=== PATIENT | female | born 1930 | race Caucasian/White ===

== ENCOUNTER 2016-07-19 08:09 | Inpatient (IN) | payer MEDICARE, BC ==
--- NOTE | 2016-07-19 09:42 | ER Document Report ---
ED Fall <CATIE FOWLER - Last Filed: 07/19/16 11:14> - General Time seen by provider: 09:48 Mode of Arrival: Ambulatory Information source: Patient - HPI Occurred: This morning - see HPI notes Where: Indoors Context: Lost balance Associated symptoms: denies: Lost consciousness Location of injury/pain: Head, Hip <JONATHAN GEORGE - Last Filed: 07/19/16 11:20> - General Chief Complaint: Fall Stated Complaint: FALL/ LEG PAIN Notes: Patient is an 86-year-old female presented from her spread of complaints of leg pain due to fall. Patient states that she got up this morning to answer the phone since her daughter was calling her. Patient states that she lost her balance and fell. Patient states she hit the front left side of her head and landed on her left hip. Patient states that she is sharp pain with movement and palpation of the left hip. Patient states that feels sore and that she cannot lift her leg. Patient denies any loss of consciousness to her knowledge. Patient is not on any blood thinners. Patient states she is on 3 blood pressure medications. Patient did have surgery on her left eye last week. Patient has no known allergies. Patient's PCP is Dr. Rios; patient had her first appointment with him this morning but missed it due to her fall. ( JONATHAN GEORGE) - Related data Allergies/Adverse Reactions: No Known Allergies Allergy (Verified 09/30/12 20:34) Past Medical History - General Information source: Patient - Social History Smoking Status: Unknown if Ever Smoked Family History: None - Past Medical History Cardiac Medical History: Reports: Hx Hypertension Musculoskeltal Medical History: Reports Hx Arthritis Past Surgical History: Reports: Hx Appendectomy, Hx Breast Surgery - right breast removal, Hx Cholecystectomy, Other - eye surgery - Immunizations Hx Diphtheria, Pertussis, Tetanus Vaccination: Yes <JONATHAN GEORGE - Last Filed: 07/19/16 11:20> Review of Systems - Review of Systems Constitutional: No symptoms reported EENT: No symptoms reported Cardiovascular: No symptoms reported Respiratory: No symptoms reported Gastrointestinal: No symptoms reported Genitourinary: No symptoms reported Female Genitourinary: No symptoms reported Musculoskeletal: See HPI, Joint pain Skin: No symptoms reported Hematologic/Lymphatic: No symptoms reported Neurological/Psychological: No symptoms reported -: Yes All other systems reviewed and negative <JONATHAN GEORGE - Last Filed: 07/19/16 11:20> Physical Exam - Vital signs Interpretation: Hypertensive - General General appearance: Appears well, Alert In distress: Mild - HEENT Head: Normocephalic, Other - ecchymosis over left temporal region and forehead, underlying hematoma Eyes: Normal Pupils: PERRL - 4 mm Mucous membranes: Moist - Respiratory Respiratory status: No respiratory distress Chest status: Nontender Breath sounds: Normal Chest palpation: Normal - Cardiovascular Rhythm: Regular Heart sounds: Normal auscultation Murmur: No - Abdominal Inspection: Normal Distension: No distension Bowel sounds: Normal Tenderness: Nontender Organomegaly: No organomegaly - Back Back: Normal, Nontender - Extremities General upper extremity: Normal inspection, Normal ROM, Normal strength Hip: Other - Tender over her left hip, pain with interior and exterior rotation , no pain or discomfort with heel percussion, good patellar pulse - Neurological Neuro grossly intact: Yes Cognition: Normal Orientation: AAOx4 Shantal Coma Scale Eye Opening: Spontaneous Shantal Coma Scale Verbal: Oriented Shantal Coma Scale Motor: Obeys Commands [place] Coma Scale Total: 15 Speech: Normal - Psychological Associated symptoms: Normal affect, Normal mood - Skin Skin Temperature: Warm Skin Moisture: Dry <JONATHAN GEORGE - Last Filed: 07/19/16 11:20> - Vital signs Vitals: Temp BP Pulse Ox 97.8 F 193/100 H 100 07/19/16 08:31 07/19/16 08:31 07/19/16 08:31 (CATIE FOWLER) Course - Laboratory Result Diagrams: 07/19/16 10:35 07/19/16 10:35 <CATIE FOWLER - Last Filed: 07/19/16 11:14> - Laboratory Result Diagrams: 07/19/16 10:35 07/19/16 10:35 - Consults Time consulted: 10:45 Consulted provider: will see as inpatient <JUANJONATHAN LARA - Last Filed: 07/19/16 11:20> - Re-evaluation Re-evalutation: 07/19/16 10:06 Patient presents indicating that she got up to answer the phone this morning and she was a little bit wobbly and fell when she reached for the door. She says that she hit her head against the door and then somehow fell on her left hip. Says she is unable to get up because of the left hip pain. She indicates she did not lose consciousness. She has a mild headache from where she hit it on the doorknob. The patient indicates that she is able to move the ankle and foot without any difficulties. She does not knee secondary to pain in her hip. Denies any prior hip injuries. The patient is alert and oriented and in no acute distress. Vital signs stable. Patient is tender in the left hip with both internal and external rotation painful range of motion and inability to actively range the hip. We'll get plain films of the left hip and pelvis. We will get a head CT due to the hematoma on the left forehead. We'll get preop labs and EKG based on clinical evaluation concerning for hip fracture. 07/19/16 10:50 I have reviewed the imaging and the patient has a left subcapital femoral neck fracture. I have spoken with Dr. Izquierdo who is on-call for orthopedics who will consult on the patient. I spoke to Dr. Saavedra for hospitalist admission and she indicates that the nurse practitioner Iglesia will take this. I consulted Dr. Parekh and her phone is not picking up and we will retry. 07/19/16 10:53 07/19/16 11:[address] Saavedra who accepted the patient for admission. (CATIE FOWLER) - Vital Signs Vital signs: Temp Pulse Resp BP Pulse Ox 97.8 F 24 H 193/86 H 96 07/19/16 08:31 07/19/16 10:45 07/19/16 10:45 07/19/16 10:45 (CATIE FOWLER) (JONATHAN GEORGE) - Laboratory Laboratory results interpreted by me: 07/19/16 07/19/16 10:35 10:35 Seg Neutrophils % 85.6 H Lymphocytes % 9.0 L Potassium 3.3 L - EKG Interpretation by Me Additional EKG results interpreted by me: 07/19/16 11:14 Heart rate 63, sinus rhythm, left ventricular hypertrophy, normal axis, normal intervals, no ST elevations, as interpreted by me. No old for comparison. ( CATIE FOWLER) - Consults Reason for consultation: 07/19/16 10:[address] Saavedra, the patient will be admitted to Dr. Parekh. (JONATHAN GEORGE) Discharge - Discharge Admitting Provider: Hospitalist - JULIO CESAR Parekh to admit as per Dr. Saavedra Unit Admitted: Surgical Floor <CATIE FOWLER - Last Filed: 07/19/16 11:14> <JONATHAN GEORGE - Last Filed: 07/19/16 11:20> - Discharge Clinical Impression: Subcapital fracture of left femur Hematoma of scalp Qualifiers: Encounter type: initial encounter Qualified Code(s): S00.03XA - Contusion of scalp, initial encounter Condition: Stable Disposition: ADMITTED INPATIENT Scribe Attestation: 07/19/16 10:50 I personally performed the services described in the documentation, reviewed and edited the documentation which was dictated to the scribe in my presence, and it accurately records my words and actions. (CATIE FOWLER) Scribe Documentation - Scribe Written by Scribe:: Jonathan George 07/19/16 10:36 acting as scribe for :: Can <JONATHAN GEORGE - Last Filed: 07/19/16 11:20>
[2016-07-19] MEDS ORDERED: MORPHINE SULFATE 10 MG/ML INJ IV ONE (10:17)
[2016-07-19 10:57] LABS: ABSOLUTE LYMPHOCYTES (AUTO) 0.7 10^3/uL (0.5-4.7); ABSOLUTE MONOCYTES (AUTO) 0.4 10^3/uL (0.1-1.4); BASOPHILS % (AUTO) 0.2 % (0-2); EOSINOPHILS % (AUTO) 0.3 % (0-6); HEMATOCRIT 37.4 % (36.0-47.0); HEMOGLOBIN 12.4 g/dL (12.0-15.5); HGB HCT DIFFERENCE -0.2; MEAN CORPUSCULAR HEMOGLOBIN 31.4 pg (27.0-33.4); MEAN CORPUSCULAR VOLUME 95 fl (80-97); MONOCYTES % (AUTO) 4.9 % (3-13); RED BLOOD COUNT 3.94 10^6/uL (3.72-5.28); RED CELL DISTRIBUTION WIDTH 13.4 % (11.5-14.0); SEGMENTED NEUTROPHILS % (AUTO) 85.6 % (42-78); WHITE BLOOD COUNT 8.2 10^3/uL (4.0-10.5)
[2016-07-19 11:05] LABS: PROTHROMBIN TIME 12.6 SEC (11.4-15.4)
[2016-07-19 11:14] LABS: ANION GAP 12 (5-19); BLOOD UREA NITROGEN 15 mg/dL (7-20); CALCIUM 9.6 mg/dL (8.4-10.2); CARBON DIOXIDE 25 mmol/L (22-30); CHLORIDE 105 mmol/L (98-107); CREATININE RESULT 0.77 mg/dL (0.52-1.25); GLUCOSE 102 mg/dL (75-110); POTASSIUM 3.3 mmol/L (3.6-5.0); SODIUM 141.6 mmol/L (137-145)
[2016-07-19] MEDS ORDERED: HYDRALAZINE HCL INJ/PF 20 MG/1 ML SDV IV ONE (11:44)
[2016-07-19] MEDS ORDERED: NORMAL SALINE 1000 ML 1,000 ML IV PRN (11:45)
[2016-07-19] MEDS ORDERED: ONDANSETRON HCL INJ/PF 4 MG/2 ML SDV IV PRN (11:45)
[2016-07-19] MEDS ORDERED: ONDANSETRON HCL INJ/PF 4 MG/2 ML SDV ONE (11:58)
[2016-07-19] MEDS ORDERED: HYDRALAZINE HCL INJ/PF 20 MG/1 ML SDV ONE (11:58)
--- NOTE | 2016-07-19 12:49 | EKG REPORT ---
SEVERITY:- ABNORMAL ECG - SINUS RHYTHM PROBABLE LVH WITH SECONDARY REPOL ABNRM BORDERLINE PROLONGED QT INTERVAL : Confirmed by: Lukasz Calderon 19-Jul-2016 12:48:30
--- NOTE | 2016-07-19 15:59 | PDOC H&P ---
History of Present Illness Admission Date/PCP: 07/19/16 11:42 KYLAH GEE MD Patient complains of: pain hip. S/P fall History of Present Illness: TAY POLK is a 86 year old female female presented with complaints of leg pain due to fall. Patient states that she got up this morning to answer the phone since her daughter was calling her. Patient states that she lost her balance and fell. Patient states she hit the front left side of her head and landed on her left hip. Patient states that she is sharp pain with movement and palpation of the left hip. Patient states that feels sore and that she cannot lift her leg. Patient denies any loss of consciousness to her knowledge. Patient is not on any blood thinners. Patient states she is on 3 blood pressure medications. Patient did have surgery on her left eye last week. Patient has no known allergies. Patient's PCP is Dr. Gee; patient had her first appointment with him this morning but missed it due to her fall. (JONATHAN GEORGE) Upon evaluation in the ED patient was diagnosed of fracture of the right hip She also had sustained head injury with ecchymosis of the left temporal area A CT of the head was negative for bleed Patient was subsequently admitted under hospitalist service with an orthopedic consult to an IMCU unit Past Medical History Cardiac Medical History: Reports: Hypertension EENT Medical History: Reports: Eyes - Glaucoma; patient is legally blind Musculoskeltal Medical History: Reports: Arthritis Past Surgical History Past Surgical History: Reports: Appendectomy, Cholecystectomy, Other - Eye surgery Social History Information Source: Relative - daughter Lives with: Family Smoking Status: Never Smoker Frequency of Alcohol Use: None Drugs: None - Advance Directive Resuscitation Status: Do Not Resuscitate Surrogate healthcare decision maker:: daughter Samira Family History Family History: None Parental Family History Reviewed: Yes Children Family History Reviewed: Yes Sibling(s) Family History Reviewed.: Yes Medication/Allergy Home Medications: Acyclovir [Acyclovir 400 mg Tablet] 400 mg PO TID 09/30/12 Brinzolamide [Azopt Eye Drops] 5 ml OP 09/30/12 Enalapril Maleate [Vasotec 20 mg Tablet] 20 mg PO 09/30/12 Furosemide [Lasix 40 mg Tablet] 40 mg PO 09/30/12 Metoprolol Tartrate [Lopressor 25 Mg Tablet] 25 mg PO 09/30/12 Prednisolone Acetate 5 ml OP 09/30/12 Tramadol HCl 50 mg PO 09/30/12 Travoprost [Travatan Z] 5 ml OP 09/30/12 Verapamil HCl [Verelan] 360 mg PO 09/30/12 Allergies/Adverse Reactions: No Known Allergies Allergy (Verified 09/30/12 20:34) Review of Systems ROS unobtainable: Other - Patient is not answering all the questions appropriately She appears in great deal of pain Physical Exam Vital Signs: Temp Pulse Resp BP Pulse Ox 99.1 F 14 180/63 H 99 07/19/16 12:26 07/19/16 13:00 07/19/16 13:01 07/19/16 13:01 General appearance: PRESENT: mild distress, thin Head exam: PRESENT: other - Large ecchymosis left frontal frontal area Eye exam: PRESENT: conjunctiva pink, EOMI, PERRLA. ABSENT: scleral icterus Mouth exam: PRESENT: moist, tongue midline Respiratory exam: PRESENT: clear to auscultation erika. ABSENT: rales, rhonchi, wheezes Cardiovascular exam: PRESENT: RRR. ABSENT: diastolic murmur, rubs, systolic murmur Pulses: PRESENT: normal dorsalis pedis pul GI/Abdominal exam: PRESENT: normal bowel sounds, soft. ABSENT: distended, guarding, mass, organolmegaly, rebound, tenderness Rectal exam: PRESENT: deferred Extremities exam: PRESENT: other - Pain on passive mobilization of the left hip. ABSENT: calf tenderness, clubbing, pedal edema Neurological exam: PRESENT: awake, CN II-XII grossly intact Skin exam: PRESENT: other - ecchymosis left frontal area Results Laboratory Results: 07/19/16 14:42 Troponin I < 0.012 07/19/16 07/19/16 10:35 10:35 Seg Neutrophils % 85.6 H Lymphocytes % 9.0 L Potassium 3.3 L Labs- Entire Visit 07/19/16 07/19/16 07/19/16 10:35 10:35 10:35 WBC 8.2 RBC 3.94 Hgb 12.4 Hct 37.4 MCV 95 MCH 31.4 MCHC 33.0 RDW 13.4 Plt Count 258 Seg Neutrophils % 85.6 H Lymphocytes % 9.0 L Monocytes % 4.9 Eosinophils % 0.3 Basophils % 0.2 Absolute Neutrophils 7.0 Absolute Lymphocytes 0.7 Absolute Monocytes 0.4 Absolute Eosinophils 0.0 Absolute Basophils 0.0 PT 12.6 INR 0.92 Sodium 141.6 Potassium 3.3 L Chloride 105 Carbon Dioxide 25 Anion Gap 12 BUN 15 Creatinine 0.77 Est GFR ( Amer) > 60 Est GFR (Non-Af Amer) > 60 Glucose 102 Calcium 9.6 Troponin I 07/19/16 14:42 WBC RBC Hgb Hct MCV MCH MCHC RDW Plt Count Seg Neutrophils % Lymphocytes % Monocytes % Eosinophils % Basophils % Absolute Neutrophils Absolute Lymphocytes Absolute Monocytes Absolute Eosinophils Absolute Basophils PT INR Sodium Potassium Chloride Carbon Dioxide Anion Gap BUN Creatinine Est GFR ( Amer) Est GFR (Non-Af Amer) Glucose Calcium Troponin I < 0.012 Impressions: Hip X-Ray 07/19/16 09:59 IMPRESSION: Acute subcapital left femoral neck fracture with varus angulation and mild foreshortening Head CT 07/19/16 10:00 IMPRESSION: Left frontal scalp hematoma without underlying skull fracture or acute intracranial changes Chest X-Ray 07/19/16 10:01 IMPRESSION: NO ACUTE RADIOGRAPHIC FINDING IN THE CHEST. Assessment & Plan - Diagnosis (1) Hypertension Qualifiers: Hypertension type: essential hypertension Qualified Code(s): I10 - Essential (primary) hypertension Is this a current diagnosis for this admission?: YesPlan: We'll treat with intermittent doses of hydralazine IV (2) Bradycardia Is this a current diagnosis for this admission?: YesPlan: Likely secondary to vagal stimulation Patient was extremely nauseous when bradycardic in the ED We will treat with Zofran IV and reevaluate The initial EKG was normal (4) Hematoma of scalp Qualifiers: Encounter type: initial encounter Qualified Code(s): S00.03XA - Contusion of scalp, initial encounter Is this a current diagnosis for this admission?: YesPlan: Secondary to fall and head injury The CAT scan of the head was negative We will order MEND exam every 4 hours Ice packs to forehead when necessary We will hold heparin prophylaxis as patient has significant head injury If any mental status changes repeat CT of the head should be performed (5) Subcapital fracture of left femur Is this a current diagnosis for this admission?: YesPlan: Case will be discussed with orthopedics Postpone surgery until tomorrow Nothing by mouth after midnight - Time Time Spent: 50 to 70 Minutes - Inpatient Certification Based on my medical assessment, after consideration of the patient's comorbidities, presenting symptoms, or acuity I expect that the services needed warrant INPATIENT care.: Yes I certify that my determination is in accordance with my understanding of Medicare's requirements for reasonable and necessary INPATIENT services [42 CFR 412.3e].: Yes
[2016-07-19] MEDS: POTASSI CL 20 MEQ/NS 1L 1,000 ML IV PRN (17:06)
[2016-07-19] MEDS: MORPHINE SULFATE 10 MG/ML INJ IV PRN ×2 (17:13→23:15)
[2016-07-19] MEDS: FAMOTIDINE INJ/PF 20 MG/2 ML SDV IV SCH (23:15)
[2016-07-19] MEDS: HYDRALAZINE HCL INJ/PF 20 MG/1 ML SDV IV PRN (23:23)
[2016-07-20 03:00] LABS: HEMATOCRIT 31.9 % (36.0-47.0); HEMOGLOBIN 10.8 g/dL (12.0-15.5); HGB HCT DIFFERENCE 0.5; MEAN CORPUSCULAR HEMOGLOBIN 31.9 pg (27.0-33.4); MEAN CORPUSCULAR HGB CONC 33.8 g/dL (32.0-36.0); MEAN CORPUSCULAR VOLUME 95 fl (80-97); RED BLOOD COUNT 3.37 10^6/uL (3.72-5.28); RED CELL DISTRIBUTION WIDTH 13.3 % (11.5-14.0); WHITE BLOOD COUNT 7.3 10^3/uL (4.0-10.5)
[2016-07-20 03:35] LABS: ALANINE AMINOTRANSFERASE 30 U/L (9-52); ALBUMIN 3.2 g/dL (3.5-5.0); ALKALINE PHOSPHATASE 77 U/L (38-126); ANION GAP 10 (5-19); ASPARTATE AMINO TRANSFERASE 30 U/L (14-36); BILIRUBIN,TOTAL 0.5 mg/dL (0.2-1.3); BLOOD UREA NITROGEN 21 mg/dL (7-20); CALCIUM 8.9 mg/dL (8.4-10.2); CARBON DIOXIDE 23 mmol/L (22-30); CHLORIDE 107 mmol/L (98-107); CREATININE RESULT 0.91 mg/dL (0.52-1.25); GLUCOSE 120 mg/dL (75-110); POTASSIUM 3.6 mmol/L (3.6-5.0)
[2016-07-20 04:07] LABS: THYROID STIMULATING HORMONE 1.06 uIU/mL (0.47-4.68)
[2016-07-20] MEDS ORDERED: ACETAMINOPHEN 325 MG TABLET PO PRN ×2 (04:39→14:01)
[2016-07-20] MEDS: MORPHINE SULFATE 10 MG/ML INJ IV PRN ×3 (04:59→23:16)
[2016-07-20 06:24] LABS: APPEARANCE,URINE SLIGHTLY HAZY; BILIRUBIN,URINE NEGATIVE (NEGATIVE); GLUCOSE, URINE NEGATIVE (NEGATIVE)
[2016-07-20 06:25] LABS: KETONES,URINE NEGATIVE (NEGATIVE); LEUKOCYTE ESTERASE,URINE TRACE (NEGATIVE); NITRITE,URINE NEGATIVE (NEGATIVE); PROTEIN,URINE 30 mg/dL (NEGATIVE); URINE SPECIFIC GRAVITY 1.018; UROBILINOGEN,URINE NEGATIVE mg/dL (<2.0)
[2016-07-20] MEDS ORDERED: VANCOMYCIN HCL 1,000 MG in DEXTROSE 5%-WATER 250 ML IV PRN (08:09)
[2016-07-20] MEDS ORDERED: RINGERS SOLUTION,LACTATED 1,000 ML IV PRN ×2 (08:09→14:02)
[2016-07-20] MEDS ORDERED: TRANEXAMIC ACID INJ/PF 1,000 MG/10 ML SDV IV PRN (08:14)
[2016-07-20] MEDS ORDERED: METOCLOPRAMIDE HCL INJ/PF 10 MG/2 ML SDV ONE (10:25)
[2016-07-20] MEDS ORDERED: ONDANSETRON HCL INJ/PF 4 MG/2 ML SDV ONE (10:25)
[2016-07-20] MEDS ORDERED: LIDOCAINE 2% INJ-PF (20 MG/ML) 10 ML AMPUL ONE (10:25)
[2016-07-20] MEDS: FAMOTIDINE INJ/PF 20 MG/2 ML SDV IV SCH ×2 (10:30→22:05)
--- NOTE | 2016-07-20 10:36 | XCELERA REPORT ---
[address] [address] Transthoracic Echocardiogram Report Name: TAY POLK Age: 86 yrs Gender: Female : 1930 Patient Status: Inpatient Patient Location: [id number]\S\328\S\A Study Date: 07/20/2016 09:01 AM Height: 66 in Weight: 148 lb BSA: 1.8 m2 Procedure: A two-dimensional transthoracic echocardiogram with color flow and Doppler was performed. Study Quality: Technically suboptimal. The study was technically difficult with many images being suboptimal in quality. Reason For Study: MURMUR / PREOPERATIVE CARDIOVASCULAR EXAM. History: MURMUR / PREOPERATIVE CARDIOVASCULAR EXAM. Ordering Physician: ERIC CONROY Performed By: Randy Baird Interpretation Summary The left ventricle is normal in size. There is mild concentric left ventricular hypertrophy. LV EF is 55% Left ventricular systolic function is low normal. Doppler measurements suggest impaired left ventricular relaxation, which is associated with grade I/IV or mild diastolic dysfunction The right ventricle is not well visualized secondary to technical limitations The left atrial size is normal. There is no evidence of mitral valve prolapse. There is no mitral valve stenosis. There is a mild amount of mitral regurgitation There is no aortic valvular vegetation. There is mild aortic stenosis There is a peak gradient of 20 mm of Hg. There is no LVOT obstruction. No hemodynamically significant valvular aortic stenosis. There is a mild amount of aortic regurgitation There is no tricuspid stenosis. There is a trace amount of tricuspid regurgitation There is mild pulmonary hypertension by echo rvsP IS 36 MM OF hG , WITH ra MEAN OF 10. There is no pericardial effusion. MMode/2D Measurements \T\ Calculations IVSd: 1.2 cm LVIDd: 5.2 cmFS: 21.2 % Ao root diam: 3.0 cm LVIDs: 4.1 cmEDV(Teich): 127.8 ml LVPWd: 1.2 cmESV(Teich): 73.1 ml Ao root area: 6.9 cm2 EF(Teich): 42.8 % LA dimension: 3.8 cm LVOT diam: 2.0 cm LVOT area: 3.2 cm2 Doppler Measurements \T\ Calculations MV E max gorge: MV P1/2t max gorge: Ao V2 max: AI max gorge: 110.3 cm/sec 112.6 cm/sec 224.4 cm/sec 365.1 cm/sec MV A max gorge: MV P1/2t: 55.4 msec Ao max PG: AI max P.4 cm/sec MVA(P1/2t): 4.0 cm2 20.1 mmHg 54.0 mmHg MV E/A: 0.77 MV dec slope: Ao V2 mean: AI dec slope: 595.1 cm/sec2 132.5 cm/sec 214.2 cm/sec2 MV dec time: Ao mean PG: AI P1/2t: 0.18 sec 8.9 mmHg 499.3 msec Ao V2 VTI: 37.8 cm HERMINIA(I,D): 1.7 cm2 HERMINIA(V,D): 1.5 cm2 LV V1 max PG: SV(LVOT): 64.2 ml PA V2 max: TR max gorge: 4.3 mmHg 158.9 cm/sec 256.3 cm/sec LV V1 mean PG: PA max PG: TR max P.8 mmHg 10.1 mmHg 26.3 mmHg LV V1 max: RVSP(TR): 36.3 mmHg 103.5 cm/sec LV V1 mean: 60.1 cm/sec LV V1 VTI: 20.3 cm RAP systole: 10.0 mmHg Left Ventricle The left ventricle is normal in size. There is mild concentric left ventricular hypertrophy. LV EF is 55%. Left ventricular systolic function is low normal. Doppler measurements suggest impaired left ventricular relaxation, which is associated with grade I/IV or mild diastolic dysfunction. The left ventricular wall motion is normal. There is no thrombus. Right Ventricle The right ventricle is not well visualized secondary to technical limitations. Atria The right atrium is normal. The left atrial size is normal. Mitral Valve There is mild mitral leaflet calcification. There is no evidence of mitral valve prolapse. There is no vegetation seen on the mitral valve. There is no mitral valve stenosis. There is a mild amount of mitral regurgitation. Aortic Valve There is no aortic valvular vegetation. There is mild aortic stenosis. There is a peak gradient of 20 mm of Hg. There is no LVOT obstruction. No hemodynamically significant valvular aortic stenosis. There is a mild amount of aortic regurgitation. Tricuspid Valve There is no tricuspid stenosis. There is a trace amount of tricuspid regurgitation. There is mild pulmonary hypertension by echo. rvsP IS 36 MM OF hG , WITH ra MEAN OF 10. Pulmonic Valve There is no pulmonic valvular stenosis. There is no pulmonic valvular regurgitation. Great Vessels The aortic root is not well visualized but is probably normal size. Effusions There is no pericardial effusion. : ERIC CONROY > Jacquelyn Olivas
--- NOTE | 2016-07-20 12:14 | PDOC PROGRESS REPORT ---
Subjective Progress Note for:: 07/20/16 Subjective:: scheduled for surgery to day appears comfortable daughter at bedside Physical Exam Vital Signs: Temp Pulse Resp BP Pulse Ox 99.0 F 95 18 165/75 H 95 07/20/16 07:26 07/20/16 07:26 07/20/16 07:26 07/20/16 07:26 07/20/16 07:26 Intake & Output 07/19/16 07/20/16 07/21/16 00:59 00:59 00:59 Intake Total 1750 900 Output Total 700 200 Balance 1050 700 Weight 67.2 kg 67.2 kg General appearance: PRESENT: no acute distress Head exam: PRESENT: atraumatic, normocephalic Eye exam: PRESENT: conjunctiva pink, EOMI, PERRLA. ABSENT: scleral icterus Neck exam: ABSENT: carotid bruit, JVD, lymphadenopathy, thyromegaly Respiratory exam: PRESENT: clear to auscultation erika. ABSENT: rales, rhonchi, wheezes Cardiovascular exam: PRESENT: RRR, systolic murmur - grade 2/6 Pulses: PRESENT: normal dorsalis pedis pul Vascular exam: PRESENT: normal capillary refill GI/Abdominal exam: PRESENT: normal bowel sounds, soft. ABSENT: distended, guarding, mass, organolmegaly, rebound, tenderness Neurological exam: PRESENT: CN II-XII grossly intact Results Laboratory Results: 07/20/16 02:48 07/20/16 02:48 07/20/16 07/20/16 07/20/16 02:48 02:48 02:48 WBC 7.3 RBC 3.37 L Hgb 10.8 L Hct 31.9 L MCV 95 MCH 31.9 MCHC 33.8 RDW 13.3 Plt Count 215 Sodium 140.0 Potassium 3.6 Chloride 107 Carbon Dioxide 23 Anion Gap 10 BUN 21 H Creatinine 0.91 Est GFR ( Amer) > 60 Est GFR (Non-Af Amer) 58 L Glucose 120 H Calcium 8.9 Magnesium 2.0 Total Bilirubin 0.5 AST 30 ALT 30 Alkaline Phosphatase 77 Total Protein 6.0 L Albumin 3.2 L TSH 1.06 Free T4 0.86 Urine Color Urine Appearance Urine pH Ur Specific [place] Urine Protein Urine Glucose (UA) Urine Ketones Urine Blood Urine Nitrite Ur Leukocyte Esterase 07/20/16 05:30 WBC RBC Hgb Hct MCV MCH MCHC RDW Plt Count Sodium Potassium Chloride Carbon Dioxide Anion Gap BUN Creatinine Est GFR ( Amer) Est GFR (Non-Af Amer) Glucose Calcium Magnesium Total Bilirubin AST ALT Alkaline Phosphatase Total Protein Albumin TSH Free T4 Urine Color YELLOW Urine Appearance SLIGHTLY HAZY Urine pH 6.0 Ur Specific [place] 1.018 Urine Protein 30 H Urine Glucose (UA) NEGATIVE Urine Ketones NEGATIVE Urine Blood SMALL H Urine Nitrite NEGATIVE Ur Leukocyte Esterase TRACE H 07/19/16 07/19/16 07/20/16 14:42 20:40 02:48 Troponin I < 0.012 0.028 0.082 EKG Comments: SINUS RHYTHM [LVHPRE] . PROBABLE LVH WITH SECONDARY REPOL ABNRM [LQT] . PROLONGED QT INTERVAL Echocardiogram : EF 50-55% mild Ao stenosis grade 1/5 diastolic dysfunction Impressions: Hip X-Ray 07/19/16 09:59 IMPRESSION: Acute subcapital left femoral neck fracture with varus angulation and mild foreshortening Head CT 07/19/16 10:00 IMPRESSION: Left frontal scalp hematoma without underlying skull fracture or acute intracranial changes Chest X-Ray 07/19/16 10:01 IMPRESSION: NO ACUTE RADIOGRAPHIC FINDING IN THE CHEST. Assessment & Plan - Diagnosis (1) Hypertension Qualifiers: Hypertension type: essential hypertension Qualified Code(s): I10 - Essential (primary) hypertension Is this a current diagnosis for this admission?: YesPlan: controlled (2) Bradycardia Is this a current diagnosis for this admission?: YesPlan: resolved likey secondary to vagal stimulation when vomiting (3) Epigastric pain Is this a current diagnosis for this admission?: YesPlan: resolved continue PPI (4) Hematoma of scalp Qualifiers: Encounter type: initial encounter Qualified Code(s): S00.03XA - Contusion of scalp, initial encounter Is this a current diagnosis for this admission?: Yes (5) Subcapital fracture of left femur Is this a current diagnosis for this admission?: YesPlan: for surgery today - Time Time Spent with patient: follow up H/H in am Time Spent with patient: 25-34 minutes
--- NOTE | 2016-07-20 12:32 | EKG REPORT ---
SEVERITY:- ABNORMAL ECG - SINUS RHYTHM PROBABLE LVH WITH SECONDARY REPOL ABNRM PROLONGED QT INTERVAL : Confirmed by: Lukasz Calderon 20-Jul-2016 12:31:17
[2016-07-20] MEDS ORDERED: THROMBIN (BOVINE) 5000 UNIT EPITAXIS KIT ONE (12:40)
[2016-07-20] MEDS ORDERED: THROMBIN (BOVINE) TOPICAL 20000 UNIT VIAL ONE (12:40)
[2016-07-20] MEDS ORDERED: BUPIVACAINE INJ/PF LIPOSOME/PF 266 MG/20 ML SDV ONE (12:41)
[2016-07-20] MEDS ORDERED: MIDAZOLAM 2 MG/2 ML INJ ONE (12:49)
[2016-07-20] MEDS ORDERED: DEXMEDETOMIDINE INJ 80 MCG/20 ML VIAL IV ONE (12:50)
[2016-07-20] MEDS ORDERED: ACETAMINOPHEN 100 ML IV ONE (12:50)
[2016-07-20] MEDS ORDERED: FENTANYL CITRATE INJ/PF 100 MCG/2 ML AMPUL ONE (12:50)
[2016-07-20] MEDS ORDERED: PROPOFOL INJ 200 MG/20 ML VIAL IV ONE (12:50)
[2016-07-20] MEDS ORDERED: (PENDING PHARMACY ID) (Ranitidine Hcl [Zantac 150 Mg Tablet] 150 MG) PO PRN (14:01)
[2016-07-20] MEDS ORDERED: (PENDING PHARMACY ID) (Polyvinyl Alcohol/Povidone/Pf [Refresh Classic Eye Drops] 1 DROP) OU PRN (14:01)
--- NOTE | 2016-07-20 14:01 | Operative Report ---
Operative Report DATE OF SURGERY: 07/20/16 PREOPERATIVE DIAGNOSIS: l femoral neck fx OPERATION: Left proximal femoral hemiarthroplasty SURGEON: AMARA PAYNE ANESTHESIA: Spinal TISSUE REMOVED OR ALTERED: Femoral head to pathology ESTIMATED BLOOD LOSS: 75 PROCEDURE: Implants used: Striker Accolade 2 stem size #8 47 mm unipolar head with standard neck extension With the patient in a right lateral decubitus position the left lower extremity hindquarter prepped and draped in a sterile fashion. A curvilinear incision made over the greater trochanter a posterior approach the hip was taken. The femur was retracted anteriorly and underlying femoral neck and head are retrieved using a corkscrew. The femoral head was measured and noted to be 47 millimeters. Attention is now turned to the femur. Access is gained to the femoral canal using a box osteotome to the piriformis fossa. The femur is then prepared using a series of tapered broaches until a number 8 broach is seated. A trial reduction was now performed using a 47 head and standard neck. Leg length was restored and there is excellent anterior posterior stability. A decision was made to proceed with this construct. All trial implants were removed. The final number 8 femoral stem is impacted into the canal. The standard neck is impacted onto the trunnion. Final unipolar head. He 7 millimeters is impacted onto the neck. The hip was reduced. The wound is copiously irrigated with pulsed lavage. A subsequent closed in layers using Vicryl and kuldip. A sterile dressing is applied. The patient was returned to the recovery room in satisfactory condition.
[2016-07-20] MEDS ORDERED: DIPHENHYDRAMINE HCL 50 MG/ML VIAL IV PRN (14:02)
[2016-07-20] MEDS ORDERED: ONDANSETRON 4 MG TAB.RAPDIS PO PRN (14:02)
[2016-07-20] MEDS ORDERED: MAG HYDROX/AL HYDROX/SIMETH SUSP 30 ML UDCUP PO PRN (14:02)
[2016-07-20] MEDS ORDERED: OXYCODONE HCL IR 5 MG TABLET PO PRN (14:02)
[2016-07-20] MEDS ORDERED: MORPHINE SULFATE 10 MG/ML INJ IM PRN (14:02)
[2016-07-20] MEDS ORDERED: ZOLPIDEM TARTRATE 5 MG TABLET PO PRN (14:02)
[2016-07-20] MEDS ORDERED: ONDANSETRON HCL INJ/PF 4 MG/2 ML SDV IV PRN (14:02)
[2016-07-20] MEDS ORDERED: MORPHINE SULFATE 10 MG/ML INJ IV PRN ×3 (14:02)
[2016-07-20] MEDS ORDERED: POLYVINYL ALCOHOL 1.4% OPH SOLN 15 ML OU PRN (15:15)
[2016-07-20] MEDS ORDERED: FAMOTIDINE 20 MG TABLET PO PRN (15:15)
[2016-07-20] MEDS: POTASSI CL 20 MEQ/NS 1L 1,000 ML IV PRN ×2 (15:30→20:49)
[2016-07-20] MEDS ORDERED: (PENDING PHARMACY ID) (Ubidecarenone [Co Q-10] 100 MG) PO SCH (16:00)
[2016-07-20] MEDS ORDERED: TRANEXAMIC ACID INJ/PF 1,000 MG/10 ML SDV IV ONE (16:00)
[2016-07-20] MEDS: HYDRALAZINE HCL INJ/PF 20 MG/1 ML SDV IV PRN (16:15)
[2016-07-20 16:51] LABS: MAGNESIUM 1.9 mg/dL (1.6-2.3); PHOSPHORUS 3.8 mg/dL (2.5-4.5)
[2016-07-20] MEDS ORDERED: NORMAL SALINE 500 ML IV ONE (16:56)
[2016-07-20] MEDS ORDERED: DILTIAZEM HCL/D5W 125 MG/125 ML RTUINJ IV ONE (17:49)
[2016-07-20] MEDS ORDERED: DILTIAZEM HCL INJ 25 MG/5 ML VIAL ONE (17:49)
--- NOTE | 2016-07-20 17:59 | EKG REPORT ---
SEVERITY:- ABNORMAL ECG - SINUS TACHYCARDIA SUPRAVENTRICULAR BIGEMINY PROBABLE LVH WITH SECONDARY REPOL ABNRM : Confirmed by: Lukasz Calderon 20-Jul-2016 17:59:36
[2016-07-20] MEDS ORDERED: (PENDING PHARMACY ID) (Enalapril Maleate [Vasotec 20 Mg Tablet] 20 MG) PO SCH (18:00)
[2016-07-20] MEDS: DILTIAZEM HCL/D5W 125 ML IV PRN ×3 (18:00→19:00)
[2016-07-20] MEDS ORDERED: (PENDING PHARMACY ID) (Brinzolamide [Azopt] 1 DROP) OU SCH (18:00)
[2016-07-20] MEDS ORDERED: DIGOXIN INJ 0.5 MG/2 ML AMPULE ONE (18:16)
[2016-07-20] MEDS ORDERED: DIGOXIN INJ 0.5 MG/2 ML AMPULE IV ONE (18:17)
[2016-07-20] MEDS: SENNOSIDES/DOCUSATE 8.6-50 MG 1 EACH TABLET PO SCH (18:24)
[2016-07-20] MEDS: ACYCLOVIR 200 MG CAPSULE PO SCH (18:25)
[2016-07-20] MEDS ORDERED: DILTIAZEM HCL INJ 25 MG/5 ML VIAL IV ONE (18:30)
[2016-07-20] MEDS ORDERED: METOPROLOL TARTRATE PF/INJ 5 MG/5 ML SDV IV ONE ×2 (18:53→19:03)
[2016-07-20] MEDS ORDERED: ENALAPRIL MALEATE 10 MG TABLET PO SCH (22:00)
[2016-07-20] MEDS ORDERED: (PENDING PHARMACY ID) (Travoprost [Travatan Z] 1 DROP) OU SCH (22:00)
[2016-07-20] MEDS: METOPROLOL TARTRATE 50 MG TABLET PO SCH (22:05)
[2016-07-20] MEDS: RIVAROXABAN 10 MG TABLET PO SCH (22:06)
[2016-07-20] MEDS: IBUPROFEN 800 MG in NORMAL SALINE 250 ML IV SCH (22:06)
[2016-07-21] MEDS ORDERED: VANCOMYCIN HCL 1,000 MG in DEXTROSE 5%-WATER 250 ML IV ONE (02:02)
[2016-07-21] MEDS: HYDRALAZINE HCL INJ/PF 20 MG/1 ML SDV IV PRN (05:30)
[2016-07-21] MEDS: POTASSI CL 20 MEQ/NS 1L 1,000 ML IV PRN ×3 (06:04→23:49)
[2016-07-21 06:17] LABS: HEMATOCRIT 33.9 % (36.0-47.0); HGB HCT DIFFERENCE -0.9; MEAN CORPUSCULAR HEMOGLOBIN 31.4 pg (27.0-33.4); MEAN CORPUSCULAR HGB CONC 32.3 g/dL (32.0-36.0); MEAN CORPUSCULAR VOLUME 97 fl (80-97); RED BLOOD COUNT 3.49 10^6/uL (3.72-5.28); RED CELL DISTRIBUTION WIDTH 13.6 % (11.5-14.0); WHITE BLOOD COUNT 11.1 10^3/uL (4.0-10.5)
[2016-07-21 06:28] LABS: ANION GAP 12 (5-19); BLOOD UREA NITROGEN 20 mg/dL (7-20); CALCIUM 9.2 mg/dL (8.4-10.2); CARBON DIOXIDE 19 mmol/L (22-30); CHLORIDE 109 mmol/L (98-107); CREATININE RESULT 0.73 mg/dL (0.52-1.25); GLUCOSE 111 mg/dL (75-110); POTASSIUM 4.6 mmol/L (3.6-5.0); SODIUM 139.9 mmol/L (137-145)
[2016-07-21] MEDS: LANSOPRAZOLE 30 MG TAB.RAP.DR PO SCH (06:34)
[2016-07-21] MEDS: IBUPROFEN 800 MG in NORMAL SALINE 250 ML IV SCH (06:35)
--- NOTE | 2016-07-21 07:37 | PDOC PROGRESS REPORT ---
Subjective Progress Note for:: 07/21/16 Subjective:: Patient complaining of pain in the left hip region Physical Exam Vital Signs: Temp Pulse Resp BP Pulse Ox 36.8 C 90 20 143/120 H 92 07/21/16 00:21 07/21/16 02:00 07/21/16 00:21 07/21/16 01:01 07/21/16 00:21 Intake & Output 07/20/16 07/21/16 07/22/16 06:59 06:59 06:59 Intake Total 2650 7161 Output Total 900 2630 Balance 1750 4531 Weight 67.2 kg 67.2 kg General appearance: PRESENT: mild distress Head exam: PRESENT: normocephalic Respiratory exam: PRESENT: unlabored Cardiovascular exam: PRESENT: RRR Pulses: PRESENT: +1 pedal pulses bilateral Vascular exam: PRESENT: normal capillary refill GI/Abdominal exam: PRESENT: soft Rectal exam: PRESENT: deferred Extremities exam: PRESENT: other - Left hip dressing dry and intact. Distal neurovascular examinations intact. Leg lengths are equal. Results Laboratory Results: 07/21/16 05:18 07/21/16 05:18 07/20/16 07/20/16 07/21/16 12:30 15:52 05:18 WBC 11.1 H RBC 3.49 L Hgb 11.0 L Hct 33.9 L MCV 97 MCH 31.4 MCHC 32.3 RDW 13.6 Plt Count 241 Sodium Potassium Chloride Carbon Dioxide Anion Gap BUN Creatinine Est GFR ( Amer) Est GFR (Non-Af Amer) Glucose Calcium Phosphorus 3.8 Magnesium 1.9 Blood Type A POSITIVE Antibody Screen NEGATIVE 07/21/16 05:18 WBC RBC Hgb Hct MCV MCH MCHC RDW Plt Count Sodium 139.9 Potassium 4.6 Chloride 109 H Carbon Dioxide 19 L Anion Gap 12 BUN 20 Creatinine 0.73 Est GFR ( Amer) > 60 Est GFR (Non-Af Amer) > 60 Glucose 111 H Calcium 9.2 Phosphorus Magnesium Blood Type Antibody Screen 07/19/16 07/19/16 07/20/16 14:42 20:40 02:48 Troponin I < 0.012 0.028 0.082 Impressions: Hip X-Ray 07/19/16 09:59 IMPRESSION: Acute subcapital left femoral neck fracture with varus angulation and mild foreshortening Head CT 07/19/16 10:00 IMPRESSION: Left frontal scalp hematoma without underlying skull fracture or acute intracranial changes Pelvis X-Ray 07/20/16 14:03 IMPRESSION: Portable postoperative film for left hip replacement in good alignment. Chest X-Ray 07/21/16 00:00 IMPRESSION: New asymmetric airspace disease in the right medial base either asymmetric edema or pneumonia. Status: Imported from PACS Assessment & Plan - Diagnosis (1) Subcapital fracture of left femur Is this a current diagnosis for this admission?: YesPlan: 86-year-old white female status post left proximal femoral hemiarthroplasty for displaced left femoral neck fracture, postop day #1. No complications noted overnight and hematocrit remained satisfactory. Patient can be mobilized with physical therapy on a weightbearing as tolerated basis. - Time Time Spent with patient: 15-24 minutes Anticipated discharge: SNF Within: within 48 hours
[2016-07-21 08:33] LABS: ARTERIAL BLOOD BASE EXCESS -5.3 mmol/L; ARTERIAL BLOOD O2 SATURATION 97.4 % (94-98)
[2016-07-21] MEDS: PRENATAL VITAMIN W-O CA NO5/FE FUMARATE/FA CAPSULE PO SCH (09:57)
[2016-07-21] MEDS: CYANOCOBALAMIN (VITAMIN B-12) 1,000 MCG TABLET PO SCH (09:58)
[2016-07-21] MEDS: FAMOTIDINE INJ/PF 20 MG/2 ML SDV IV SCH ×2 (09:58→21:14)
[2016-07-21] MEDS: METOPROLOL TARTRATE 50 MG TABLET PO SCH ×2 (09:58→21:12)
[2016-07-21] MEDS: CHOLECALCIFEROL (D3) 1,000 UNIT TABLET PO SCH (09:58)
[2016-07-21] MEDS: SENNOSIDES/DOCUSATE 8.6-50 MG 1 EACH TABLET PO SCH ×2 (09:58→17:46)
[2016-07-21] MEDS ORDERED: (PENDING PHARMACY ID) (Ubidecarenone [Co Q-10] 100 MG) PO SCH (10:00)
[2016-07-21] MEDS ORDERED: (PENDING PHARMACY ID) (Cholecalciferol (Vitamin D3) [Vitamin D3 2000 Unit Tablet] 2,000 UN PO SCH (10:00)
[2016-07-21] MEDS ORDERED: VERAPAMIL HCL 360 MG PO SCH (10:00)
[2016-07-21] MEDS ORDERED: VERAPAMIL HCL 180 MG TABLET.SA PO SCH (10:00)
[2016-07-21] MEDS: MORPHINE SULFATE 10 MG/ML INJ IV PRN (10:01)
[2016-07-21] MEDS: ACYCLOVIR 200 MG CAPSULE PO SCH ×2 (10:02→17:45)
[2016-07-21] MEDS: PREDNISOLONE ACETATE 1% OPH SUSP 5 ML OS SCH (10:02)
--- NOTE | 2016-07-21 10:33 | EKG REPORT ---
SEVERITY:- ABNORMAL ECG - SINUS RHYTHM PROBABLE LVH WITH SECONDARY REPOL ABNRM ANTERIOR Q WAVES, POSSIBLY DUE TO LVH ST DEPRESSION, CONSIDER ISCHEMIA, ANT LEADS : Confirmed by: Lukasz Calderon 21-Jul-2016 10:32:58
[2016-07-21] MEDS ORDERED: DILTIAZEM HCL 120 MG CAP.SR.24H PO ONE (11:00)
[2016-07-21] MEDS ORDERED: LEVOFLOXACIN 500 MG/D5W RTU 500 MG/100 ML RTUPB IV SCH (12:00)
--- NOTE | 2016-07-21 13:07 | PDOC PROGRESS REPORT ---
Subjective Progress Note for:: 07/21/16 Subjective:: Patient underwent surgery yesterday after the procedure she went into atrial fibrillation with rapid ventricular rate Patient was treated as Cardizem metoprolol and digoxin Cardizem drip was discontinued during the night This morning patient is still in atrial fibrillation but with controlled ventricular rate Mentation is excellent she has minimal pain no fever no chills no cough Physical Exam Vital Signs: Temp Pulse Resp BP Pulse Ox 99.7 F 99 19 138/66 H 96 07/21/16 07:41 07/21/16 07:41 07/21/16 07:41 07/21/16 07:41 07/21/16 12:59 Intake & Output 07/20/16 07/21/16 07/22/16 00:59 00:59 00:59 Intake Total 1750 5611 2450 Output Total 700 2180 650 Balance 1050 3431 1800 Weight 67.2 kg 67.2 kg 67.2 kg General appearance: PRESENT: no acute distress, well-developed, well-nourished Head exam: PRESENT: atraumatic, normocephalic Eye exam: PRESENT: conjunctiva pink, EOMI, PERRLA. ABSENT: scleral icterus Ear exam: PRESENT: normal external ear exam Mouth exam: PRESENT: moist, tongue midline Neck exam: ABSENT: carotid bruit, JVD, lymphadenopathy, thyromegaly Respiratory exam: PRESENT: clear to auscultation erika. ABSENT: rales, rhonchi, wheezes Cardiovascular exam: PRESENT: irregular rhythm, systolic murmur - grade 2/6 systolic murmur. ABSENT: diastolic murmur, rubs Pulses: PRESENT: normal dorsalis pedis pul Vascular exam: PRESENT: normal capillary refill GI/Abdominal exam: PRESENT: normal bowel sounds, soft. ABSENT: distended, guarding, mass, organolmegaly, rebound, tenderness Rectal exam: PRESENT: deferred Extremities exam: PRESENT: full ROM. ABSENT: calf tenderness, clubbing, pedal edema Neurological exam: PRESENT: alert, awake, oriented to person, oriented to place , oriented to time, oriented to situation, CN II-XII grossly intact. ABSENT: motor sensory deficit Psychiatric exam: PRESENT: appropriate affect, normal mood. ABSENT: homicidal ideation, suicidal ideation Skin exam: PRESENT: dry, intact, warm. ABSENT: cyanosis, rash Results Laboratory Results: 07/21/16 05:18 07/21/16 05:18 07/20/16 07/20/16 07/20/16 05:30 12:30 15:52 WBC RBC Hgb Hct MCV MCH MCHC RDW Plt Count Carbonic Acid HCO3/H2CO3 Ratio ABG pH ABG pCO2 ABG pO2 ABG HCO3 ABG O2 Saturation ABG Base Excess FiO2 Sodium Potassium Chloride Carbon Dioxide Anion Gap BUN Creatinine Est GFR ( Amer) Est GFR (Non-Af Amer) Glucose Calcium Phosphorus 3.8 Magnesium 1.9 Urine Color YELLOW Urine Appearance SLIGHTLY HAZY Urine pH 6.0 Ur Specific [place] 1.018 Urine Protein 30 H Urine Glucose (UA) NEGATIVE Urine Ketones NEGATIVE Urine Blood SMALL H Urine Nitrite NEGATIVE Ur Leukocyte Esterase TRACE H Blood Type A POSITIVE Antibody Screen NEGATIVE 07/21/16 07/21/16 07/21/16 05:18 05:18 06:25 WBC 11.1 H RBC 3.49 L Hgb 11.0 L Hct 33.9 L MCV 97 MCH 31.4 MCHC 32.3 RDW 13.6 Plt Count 241 Carbonic Acid 0.87 L HCO3/H2CO3 Ratio 20:1 ABG pH 7.42 ABG pCO2 28.9 L ABG pO2 93.9 ABG HCO3 18.2 L ABG O2 Saturation 97.4 ABG Base Excess -5.3 FiO2 15L Sodium 139.9 Potassium 4.6 Chloride 109 H Carbon Dioxide 19 L Anion Gap 12 BUN 20 Creatinine 0.73 Est GFR ( Amer) > 60 Est GFR (Non-Af Amer) > 60 Glucose 111 H Calcium 9.2 Phosphorus Magnesium Urine Color Urine Appearance Urine pH Ur Specific [place] Urine Protein Urine Glucose (UA) Urine Ketones Urine Blood Urine Nitrite Ur Leukocyte Esterase Blood Type Antibody Screen 07/19/16 07/19/16 07/20/16 14:42 20:40 02:48 Troponin I < 0.012 0.028 0.082 Impressions: Hip X-Ray 07/19/16 09:59 IMPRESSION: Acute subcapital left femoral neck fracture with varus angulation and mild foreshortening Head CT 07/19/16 10:00 IMPRESSION: Left frontal scalp hematoma without underlying skull fracture or acute intracranial changes Pelvis X-Ray 07/20/16 14:03 IMPRESSION: Portable postoperative film for left hip replacement in good alignment. Chest X-Ray 07/21/16 00:00 IMPRESSION: New asymmetric airspace disease in the right medial base either asymmetric edema or pneumonia. Assessment & Plan - Diagnosis (1) Hypertension Qualifiers: Hypertension type: essential hypertension Qualified Code(s): I10 - Essential (primary) hypertension Is this a current diagnosis for this admission?: Yes (2) Bradycardia Is this a current diagnosis for this admission?: YesPlan: On admission resolved (3) Epigastric pain Is this a current diagnosis for this admission?: Yes (4) Hematoma of scalp Qualifiers: Encounter type: initial encounter Qualified Code(s): S00.03XA - Contusion of scalp, initial encounter Is this a current diagnosis for this admission?: Yes (5) Subcapital fracture of left femur Is this a current diagnosis for this admission?: Yes (6) Paroxysmal atrial fibrillation Is this a current diagnosis for this admission?: YesPlan: Continue present management Patient's rate is controlled this morning On the monitor she appears to be sinus rhythm with multiple PACs Patient is not a candidate for chronic anticoagulation at age we will continue severe xarelto prophylaxis - Time Time Spent with patient: 25-34 minutes
[2016-07-21] MEDS: ACETAMINOPHEN 325 MG TABLET PO PRN (17:45)
[2016-07-21] MEDS: DILTIAZEM HCL 120 MG CAP.SR.24H PO SCH (21:12)
[2016-07-21] MEDS: RIVAROXABAN 10 MG TABLET PO SCH (21:13)
[2016-07-22] MEDS ORDERED: LORAZEPAM INJ 2 MG/1 ML VIAL ONE (01:46)
[2016-07-22] MEDS ORDERED: LORAZEPAM INJ 2 MG/1 ML VIAL IV ONE (02:00)
[2016-07-22] MEDS: LANSOPRAZOLE 30 MG TAB.RAP.DR PO SCH (05:59)
[2016-07-22] MEDS ORDERED: DIAZEPAM INJ 10 MG/2 ML DISP.SYRIN ONE (06:41)
--- NOTE | 2016-07-22 08:29 | PDOC PROGRESS REPORT ---
Subjective Progress Note for:: 07/22/16 Subjective:: Patient with a significant decline in mental status. This is been treated with a combination of Ativan, Valium, and morphine. Pulse is 98. O2 sat is 93. Physical Exam Vital Signs: Temp Pulse Resp BP Pulse Ox 36.6 C 64 22 H 162/58 H 100 07/22/16 03:53 07/22/16 03:53 07/22/16 03:53 07/22/16 03:53 07/22/16 03:53 Intake & Output 07/21/16 07/22/16 07/23/16 06:59 06:59 06:59 Intake Total 7161 1580 Output Total 2630 450 Balance 4531 1130 Weight 67.2 kg 83.3 kg General appearance: PRESENT: disheveled Head exam: PRESENT: normocephalic Respiratory exam: PRESENT: unlabored Cardiovascular exam: PRESENT: RRR Pulses: PRESENT: +1 pedal pulses bilateral GI/Abdominal exam: PRESENT: soft Extremities exam: PRESENT: other - Left hip dressing with small amount of drainage Neurological exam: PRESENT: other - Patient with a significant decline in mental status. She's thrashing in bed, unresponsive to verbal commands, Results Laboratory Results: 07/21/16 05:18 07/21/16 05:18 07/20/16 07/21/16 05:30 06:25 Carbonic Acid 0.87 L HCO3/H2CO3 Ratio 20:1 ABG pH 7.42 ABG pCO2 28.9 L ABG pO2 93.9 ABG HCO3 18.2 L ABG O2 Saturation 97.4 ABG Base Excess -5.3 FiO2 15L Urine Color YELLOW Urine Appearance SLIGHTLY HAZY Urine pH 6.0 Ur Specific [place] 1.018 Urine Protein 30 H Urine Glucose (UA) NEGATIVE Urine Ketones NEGATIVE Urine Blood SMALL H Urine Nitrite NEGATIVE Ur Leukocyte Esterase TRACE H 07/19/16 07/19/16 07/20/16 14:42 20:40 02:48 Troponin I < 0.012 0.028 0.082 Impressions: Hip X-Ray 07/19/16 09:59 IMPRESSION: Acute subcapital left femoral neck fracture with varus angulation and mild foreshortening Head CT 07/19/16 10:00 IMPRESSION: Left frontal scalp hematoma without underlying skull fracture or acute intracranial changes Pelvis X-Ray 07/20/16 14:03 IMPRESSION: Portable postoperative film for left hip replacement in good alignment. Chest X-Ray 07/21/16 00:00 IMPRESSION: New asymmetric airspace disease in the right medial base either asymmetric edema or pneumonia. Status: Imported from PACS Assessment & Plan - Diagnosis (1) Subcapital fracture of left femur Is this a current diagnosis for this admission?: YesPlan: Patient postop day 2. Limited progress with physical therapy because of mental status changes. [facility] when mental status changes (2) Mental status alteration Qualifiers: Altered mental status type: disorientation Qualified Code(s): R41.0 - Disorientation, unspecified Is this a current diagnosis for this admission?: YesPlan: I suspect this is probably from polypharmacy. I've taken the liberty of discontinuing the morphine, Ativan, and Valium. Patient has had similar response to Ultram at home. Have initiated the use of Esteban Troy for pain control. - Time Time Spent with patient: 15-24 minutes Anticipated discharge: SNF Within: Other
[2016-07-22] MEDS ORDERED: DIAZEPAM INJ 10 MG/2 ML DISP.SYRIN IV ONE (09:00)
[2016-07-22 09:20] LABS: ARTERIAL BLOOD BASE EXCESS -7.4 mmol/L
[2016-07-22] MEDS ORDERED: NITROGLYCERIN 2% OINTMENT 1 GM PACKET TP ONE (10:00)
[2016-07-22] MEDS ORDERED: FUROSEMIDE INJ/PF 40 MG/4 ML SDV IV SCH (10:00)
[2016-07-22] MEDS: SENNOSIDES/DOCUSATE 8.6-50 MG 1 EACH TABLET PO SCH ×2 (10:08→18:30)
[2016-07-22] MEDS: PRENATAL VITAMIN W-O CA NO5/FE FUMARATE/FA CAPSULE PO SCH (10:08)
[2016-07-22] MEDS: DILTIAZEM HCL 120 MG CAP.SR.24H PO SCH (10:08)
[2016-07-22] MEDS: CYANOCOBALAMIN (VITAMIN B-12) 1,000 MCG TABLET PO SCH (10:08)
[2016-07-22] MEDS: PREDNISOLONE ACETATE 1% OPH SUSP 5 ML OS SCH (10:08)
[2016-07-22] MEDS: ACYCLOVIR 200 MG CAPSULE PO SCH ×2 (10:08→18:30)
[2016-07-22] MEDS: CHOLECALCIFEROL (D3) 1,000 UNIT TABLET PO SCH (10:08)
[2016-07-22] MEDS: METOPROLOL TARTRATE 50 MG TABLET PO SCH (10:08)
[2016-07-22] MEDS: FAMOTIDINE INJ/PF 20 MG/2 ML SDV IV SCH ×2 (11:29→22:22)
[2016-07-22] MEDS: DILTIAZEM HCL INJ 25 MG/5 ML VIAL IV SCH ×2 (14:00→16:45)
[2016-07-22] MEDS ORDERED: IBUPROFEN 800 MG in NORMAL SALINE 250 ML IV SCH ×2 (14:00→22:00)
[2016-07-22] MEDS: AMPICILLIN SODIUM/SULBACTAM NA 1.5 GM in NORMAL SALINE 50 ML IV SCH ×2 (14:30→19:30)
[2016-07-22] MEDS: METOPROLOL TARTRATE PF/INJ 5 MG/5 ML SDV IV SCH ×2 (14:30→16:45)
--- NOTE | 2016-07-22 15:47 | PDOC PROGRESS REPORT ---
Subjective Progress Note for:: 07/22/16 Subjective:: was extremely agitated last night and had to be sedated this am severe SOB ; hypoxemic had to be placed on 100% non rebreather CXR was suggestive of CHF patient responded to IV lasix and nitropaste Physical Exam Vital Signs: Temp Pulse Resp BP Pulse Ox 100.7 F H 91 24 H 176/70 H 95 07/22/16 12:18 07/22/16 14:00 07/22/16 12:18 07/22/16 12:18 07/22/16 14:01 Intake & Output 07/21/16 07/22/16 07/23/16 00:59 00:59 00:59 Intake Total 5611 3990 354 Output Total 2180 1000 600 Balance 3431 2990 -246 Weight 67.2 kg 67.2 kg 83.3 kg General appearance: PRESENT: mild distress Head exam: PRESENT: atraumatic, normocephalic Eye exam: PRESENT: conjunctiva pale Ear exam: PRESENT: normal external ear exam Neck exam: ABSENT: carotid bruit, JVD, lymphadenopathy, thyromegaly Respiratory exam: PRESENT: crackles, rales - bilaterally 2/3 up Cardiovascular exam: PRESENT: RRR. ABSENT: diastolic murmur, rubs, systolic murmur GI/Abdominal exam: PRESENT: normal bowel sounds, soft. ABSENT: distended, guarding, mass, organolmegaly, rebound, tenderness Neurological exam: PRESENT: awake Results Laboratory Results: 07/21/16 05:18 07/21/16 05:18 07/22/16 08:54 Carbonic Acid 0.85 L HCO3/H2CO3 Ratio 19:1 ABG pH 7.39 ABG pCO2 28.1 L ABG pO2 90.5 ABG HCO3 16.4 L ABG O2 Saturation 97.0 ABG Base Excess -7.4 FiO2 15L 07/19/16 07/19/16 07/20/16 14:42 20:40 02:48 Troponin I < 0.012 0.028 0.082 Impressions: Hip X-Ray 07/19/16 09:59 IMPRESSION: Acute subcapital left femoral neck fracture with varus angulation and mild foreshortening Head CT 07/19/16 10:00 IMPRESSION: Left frontal scalp hematoma without underlying skull fracture or acute intracranial changes Pelvis X-Ray 07/20/16 14:03 IMPRESSION: Portable postoperative film for left hip replacement in good alignment. Chest X-Ray 07/22/16 00:00 IMPRESSION: Interval development of bilateral pleural effusions with bilateral alveolar and interstitial edema worrisome for fluid overload or congestive failure Assessment & Plan - Diagnosis (1) Hypertension Qualifiers: Hypertension type: essential hypertension Qualified Code(s): I10 - Essential (primary) hypertension Is this a current diagnosis for this admission?: Yes (2) Bradycardia Is this a current diagnosis for this admission?: Yes (3) Epigastric pain Is this a current diagnosis for this admission?: Yes (4) Hematoma of scalp Qualifiers: Encounter type: initial encounter Qualified Code(s): S00.03XA - Contusion of scalp, initial encounter Is this a current diagnosis for this admission?: Yes (5) Subcapital fracture of left femur Is this a current diagnosis for this admission?: Yes (6) Paroxysmal atrial fibrillation Is this a current diagnosis for this admission?: Yes (7) Acute on chronic diastolic (congestive) heart failure Is this a current diagnosis for this admission?: YesPlan: secondary to fluid overload decrease IV fluids continue lasix (8) Delirium Is this a current diagnosis for this admission?: YesPlan: secondary to metabolic encephalopathy secondary to UTI noted that patient has low grade fever and gram positive cocci in urine switched coverage to unasyn to reevaluate management when identification and culture available
[2016-07-22 16:11] LABS: CREATINE KINASE MB 6.83 ng/mL (<4.55)
[2016-07-22 16:20] LABS: TROPONIN I 2.99 ng/mL
--- NOTE | 2016-07-22 16:51 | Progress Note ---
Provider Note Provider Note: EKG : a fib LVH ST-T changes with ST depression on precordial leads 07/22/16 07/22/16 15:28 15:28 Creatine Kinase 422 H CK-MB (CK-2) 6.83 H Troponin I 2.990 Acute Non STEMI Patient has no chest pain and fluid overload is improved spoke with daughter patient will be managed medically ; will initiate ecotrin 81 mg daily , continue xarelto daughter states patient has been intolerant to lipitor in the past continue cardizem and metoprolol to keep HR<100
[2016-07-22] MEDS ORDERED: LISINOPRIL 10 MG TABLET PO ONE (17:45)
[2016-07-22] MEDS ORDERED: ASPIRIN 81 MG TABLET, ENT COATED PO ONE (18:00)
[2016-07-22] MEDS: ACETAMINOPHEN 325 MG TABLET PO PRN (18:30)
--- NOTE | 2016-07-22 21:51 | EKG REPORT ---
SEVERITY:- ABNORMAL ECG - ATRIAL FIBRILLATION REPOLARIZATION ABNORMALITY, PROB RATE RELATED VS ISCHEMIA BORDERLINE PROLONGED QT INTERVAL : Confirmed by: Lukasz Calderon 22-Jul-2016 21:50:35
[2016-07-22] MEDS: IBUPROFEN 800 MG in NORMAL SALINE 250 ML IV SCH (22:21)
[2016-07-22] MEDS: FUROSEMIDE INJ/PF 20 MG/2 ML SDV IV SCH (22:22)
[2016-07-22] MEDS: RIVAROXABAN 10 MG TABLET PO SCH (22:23)
[2016-07-23] MEDS: AMPICILLIN SODIUM/SULBACTAM NA 1.5 GM in NORMAL SALINE 50 ML IV SCH ×4 (00:35→17:33)
[2016-07-23] MEDS: METOPROLOL TARTRATE PF/INJ 5 MG/5 ML SDV IV SCH ×4 (00:35→17:39)
[2016-07-23] MEDS: DILTIAZEM HCL INJ 25 MG/5 ML VIAL IV SCH ×3 (00:35→12:43)
[2016-07-23 04:13] LABS: ANION GAP 10 (5-19); BLOOD UREA NITROGEN 28 mg/dL (7-20); CALCIUM 8.7 mg/dL (8.4-10.2); CARBON DIOXIDE 18 mmol/L (22-30); CHLORIDE 114 mmol/L (98-107); CREATININE RESULT 0.85 mg/dL (0.52-1.25); GLUCOSE 95 mg/dL (75-110); POTASSIUM 3.3 mmol/L (3.6-5.0); SODIUM 142.2 mmol/L (137-145)
[2016-07-23 05:31] LABS: ABSOLUTE EOSINOPHILS # (AUTO) 0.1 10^3/uL (0.0-0.6); ABSOLUTE LYMPHOCYTES (AUTO) 0.7 10^3/uL (0.5-4.7); ABSOLUTE MONOCYTES (AUTO) 0.8 10^3/uL (0.1-1.4); ABSOLUTE NEUT (AUTO) 6.7 10^3/uL (1.7-8.2); BASOPHILS % (AUTO) 0.1 % (0-2); EOSINOPHILS % (AUTO) 0.6 % (0-6); HGB HCT DIFFERENCE 0.1; LYMPHOCYTES % (AUTO) 8.5 % (13-45); MEAN CORPUSCULAR HEMOGLOBIN 32.3 pg (27.0-33.4); MEAN CORPUSCULAR HGB CONC 33.5 g/dL (32.0-36.0); MEAN CORPUSCULAR VOLUME 96 fl (80-97); MONOCYTES % (AUTO) 9.8 % (3-13); RED CELL DISTRIBUTION WIDTH 13.4 % (11.5-14.0); WHITE BLOOD COUNT 8.3 10^3/uL (4.0-10.5)
[2016-07-23 05:45] LABS: HEMOGLOBIN 8.7 g/dL (12.0-15.5)
[2016-07-23] MEDS: LANSOPRAZOLE 30 MG TAB.RAP.DR PO SCH (05:58)
[2016-07-23] MEDS ORDERED: LISINOPRIL 10 MG TABLET PO SCH (10:00)
[2016-07-23] MEDS: ASPIRIN 81 MG TABLET, ENT COATED PO SCH (10:07)
[2016-07-23] MEDS: CYANOCOBALAMIN (VITAMIN B-12) 1,000 MCG TABLET PO SCH (10:09)
[2016-07-23] MEDS: ACYCLOVIR 200 MG CAPSULE PO SCH ×2 (10:09→17:39)
[2016-07-23] MEDS: SENNOSIDES/DOCUSATE 8.6-50 MG 1 EACH TABLET PO SCH ×2 (10:09→17:38)
[2016-07-23] MEDS: PRENATAL VITAMIN W-O CA NO5/FE FUMARATE/FA CAPSULE PO SCH (10:09)
[2016-07-23] MEDS: CHOLECALCIFEROL (D3) 1,000 UNIT TABLET PO SCH (10:09)
[2016-07-23] MEDS: FUROSEMIDE INJ/PF 20 MG/2 ML SDV IV SCH (10:10)
[2016-07-23] MEDS: PREDNISOLONE ACETATE 1% OPH SUSP 5 ML OS SCH (10:10)
[2016-07-23] MEDS: FAMOTIDINE INJ/PF 20 MG/2 ML SDV IV SCH ×2 (10:10→21:20)
[2016-07-23] MEDS: IBUPROFEN 800 MG in NORMAL SALINE 250 ML IV SCH (10:29)
[2016-07-23] MEDS ORDERED: FUROSEMIDE INJ/PF 20 MG/2 ML SDV IV SCH (14:30)
[2016-07-23] MEDS ORDERED: POTASSI CL 20 MEQ/50 ML RIDER 50 ML IV ONE (15:00)
[2016-07-23] MEDS ORDERED: FUROSEMIDE INJ/PF 20 MG/2 ML SDV IV ONE (15:00)
[2016-07-23] MEDS ORDERED: POTASSIUM CHLORIDE 20 MEQ/15 ML UDCUP PO ONE (15:30)
[2016-07-23] MEDS ORDERED: DILTIAZEM HCL INJ 25 MG/5 ML VIAL IV PRN (17:32)
--- NOTE | 2016-07-23 17:39 | PDOC PROGRESS REPORT ---
Subjective Progress Note for:: 07/23/16 Subjective:: Patient is doing a lot better today She is less confused she is in no respiratory distress She does not have any chest pain Her blood pressure is running on the high side at the by mouth meds were reordered Physical Exam Vital Signs: Temp Pulse Resp BP Pulse Ox 98.3 F 75 18 181/84 H 99 07/23/16 12:08 07/23/16 14:00 07/23/16 12:08 07/23/16 12:08 07/23/16 12:08 Intake & Output 07/22/16 07/23/16 07/24/16 00:59 00:59 00:59 Intake Total 3990 354 704 Output Total 1000 2100 1500 Balance 5940 -8509 -016 Weight 67.2 kg 83.3 kg 83 kg General appearance: PRESENT: no acute distress, well-developed, well-nourished Head exam: PRESENT: atraumatic, normocephalic Eye exam: PRESENT: conjunctiva pale, EOMI, PERRLA. ABSENT: scleral icterus Ear exam: PRESENT: normal external ear exam Mouth exam: PRESENT: moist, tongue midline Neck exam: ABSENT: carotid bruit, JVD, lymphadenopathy, thyromegaly Respiratory exam: PRESENT: clear to auscultation erika. ABSENT: rales, rhonchi, wheezes Cardiovascular exam: PRESENT: RRR. ABSENT: diastolic murmur, rubs, systolic murmur Pulses: PRESENT: normal dorsalis pedis pul Vascular exam: PRESENT: normal capillary refill GI/Abdominal exam: PRESENT: normal bowel sounds, soft. ABSENT: distended, guarding, mass, organolmegaly, rebound, tenderness Rectal exam: PRESENT: deferred Extremities exam: PRESENT: full ROM. ABSENT: calf tenderness, clubbing, pedal edema Neurological exam: PRESENT: awake, CN II-XII grossly intact Psychiatric exam: PRESENT: other - Still confused Skin exam: PRESENT: dry, intact, warm. ABSENT: cyanosis, rash Results Laboratory Results: 07/23/16 05:14 07/23/16 03:45 07/23/16 07/23/16 07/23/16 03:45 03:45 05:14 WBC Cancelled 8.3 RBC Cancelled 2.70 L Hgb Cancelled 8.7 L D Hct Cancelled 26.0 L MCV Cancelled 96 MCH Cancelled 32.3 MCHC Cancelled 33.5 RDW Cancelled 13.4 Plt Count Cancelled 210 Seg Neutrophils % Cancelled 81.0 H Lymphocytes % Cancelled 8.5 L Monocytes % Cancelled 9.8 Eosinophils % Cancelled 0.6 Basophils % Cancelled 0.1 Absolute Neutrophils Cancelled 6.7 Absolute Lymphocytes Cancelled 0.7 Absolute Monocytes Cancelled 0.8 Absolute Eosinophils Cancelled 0.1 Absolute Basophils Cancelled 0.0 Sodium 142.2 Potassium 3.3 L Chloride 114 H Carbon Dioxide 18 L Anion Gap 10 BUN 28 H Creatinine 0.85 Est GFR ( Amer) > 60 Est GFR (Non-Af Amer) > 60 Glucose 95 Calcium 8.7 07/20/16 05:30 Thomas Catheter Urine Culture - Final Enterococcus Faecalis(Group D) 07/19/16 07/19/16 07/20/16 14:42 20:40 02:48 Creatine Kinase CK-MB (CK-2) Troponin I < 0.012 0.028 0.082 07/22/16 07/22/16 07/22/16 15:28 15:28 21:16 Creatine Kinase 422 H CK-MB (CK-2) 6.83 H Troponin I 2.990 2.660 07/23/16 03:45 Creatine Kinase CK-MB (CK-2) Troponin I 2.280 EKG Comments: engine monitor today normal sinus tachycardia at a rate of 100 Impressions: Hip X-Ray 07/19/16 09:59 IMPRESSION: Acute subcapital left femoral neck fracture with varus angulation and mild foreshortening Head CT 07/19/16 10:00 IMPRESSION: Left frontal scalp hematoma without underlying skull fracture or acute intracranial changes Pelvis X-Ray 07/20/16 14:03 IMPRESSION: Portable postoperative film for left hip replacement in good alignment. Chest X-Ray 07/22/16 00:00 IMPRESSION: Interval development of bilateral pleural effusions with bilateral alveolar and interstitial edema worrisome for fluid overload or congestive failure Assessment & Plan - Diagnosis (1) Hypertension Qualifiers: Hypertension type: essential hypertension Qualified Code(s): I10 - Essential (primary) hypertension Is this a current diagnosis for this admission?: Yes (2) Bradycardia Is this a current diagnosis for this admission?: Yes (3) Epigastric pain Is this a current diagnosis for this admission?: Yes (4) Hematoma of scalp Qualifiers: Encounter type: initial encounter Qualified Code(s): S00.03XA - Contusion of scalp, initial encounter Is this a current diagnosis for this admission?: Yes (5) Subcapital fracture of left femur Is this a current diagnosis for this admission?: Yes (6) Paroxysmal atrial fibrillation Is this a current diagnosis for this admission?: Yes (7) Acute on chronic diastolic (congestive) heart failure Is this a current diagnosis for this admission?: Yes (8) Delirium Is this a current diagnosis for this admission?: Yes - Time Time Spent with patient: 25-34 minutes - Overall patient's condition has improved Patient likely may be transferred to SNF facility in 36-48 hours Within: within 36 hours
[2016-07-23] MEDS: LISINOPRIL 10 MG TABLET PO SCH (21:20)
[2016-07-23] MEDS: DILTIAZEM HCL 120 MG CAP.SR.24H PO SCH (21:20)
[2016-07-23] MEDS: RIVAROXABAN 10 MG TABLET PO SCH (21:20)
[2016-07-23] MEDS: METOPROLOL TARTRATE 50 MG TABLET PO SCH (21:20)
[2016-07-23] MEDS: FUROSEMIDE INJ/PF 40 MG/4 ML SDV IV SCH (21:20)
[2016-07-23] MEDS: KETOROLAC TROMETHAMINE INJ/PF 30 MG/1 ML SDV IV SCH (22:00)
[2016-07-24] MEDS: HYDRALAZINE HCL INJ/PF 20 MG/1 ML SDV IV PRN ×2 (00:12→07:51)
[2016-07-24] MEDS: AMPICILLIN SODIUM/SULBACTAM NA 1.5 GM in NORMAL SALINE 50 ML IV SCH ×3 (00:16→13:49)
[2016-07-24] MEDS: KETOROLAC TROMETHAMINE INJ/PF 30 MG/1 ML SDV IV SCH (04:30)
[2016-07-24 05:37] LABS: ABSOLUTE EOSINOPHILS # (AUTO) 0.2 10^3/uL (0.0-0.6); ABSOLUTE LYMPHOCYTES (AUTO) 0.8 10^3/uL (0.5-4.7); ABSOLUTE MONOCYTES (AUTO) 0.6 10^3/uL (0.1-1.4); BASOPHILS % (AUTO) 0.2 % (0-2); EOSINOPHILS % (AUTO) 2.4 % (0-6); HEMATOCRIT 26.9 % (36.0-47.0); HEMOGLOBIN 9.1 g/dL (12.0-15.5); HGB HCT DIFFERENCE 0.4; LYMPHOCYTES % (AUTO) 12.5 % (13-45); MEAN CORPUSCULAR HEMOGLOBIN 32.1 pg (27.0-33.4); MEAN CORPUSCULAR HGB CONC 33.8 g/dL (32.0-36.0); MEAN CORPUSCULAR VOLUME 95 fl (80-97); MONOCYTES % (AUTO) 9.5 % (3-13); RED BLOOD COUNT 2.82 10^6/uL (3.72-5.28); RED CELL DISTRIBUTION WIDTH 13.2 % (11.5-14.0); SEGMENTED NEUTROPHILS % (AUTO) 75.4 % (42-78); WHITE BLOOD COUNT 6.6 10^3/uL (4.0-10.5)
[2016-07-24 06:00] LABS: ANION GAP 14 (5-19); BLOOD UREA NITROGEN 28 mg/dL (7-20); CALCIUM 9.1 mg/dL (8.4-10.2); CARBON DIOXIDE 22 mmol/L (22-30); CHLORIDE 109 mmol/L (98-107); CREATININE RESULT 0.84 mg/dL (0.52-1.25); GLUCOSE 96 mg/dL (75-110); MAGNESIUM 1.8 mg/dL (1.6-2.3); SODIUM 144.5 mmol/L (137-145)
[2016-07-24] MEDS: LANSOPRAZOLE 30 MG TAB.RAP.DR PO SCH (06:01)
[2016-07-24 06:07] LABS: POTASSIUM 2.9 mmol/L (3.6-5.0)
[2016-07-24] MEDS ORDERED: POTASSIUM CHLORIDE 10 MEQ TABLET.SA PO ONE ×4 (06:21→14:00)
[2016-07-24] MEDS: POTASSI CL 20 MEQ/50 ML RIDER 20 MEQ/50 ML RTUPB IV SCH ×2 (06:49→11:21)
--- NOTE | 2016-07-24 06:51 | PDOC PROGRESS REPORT ---
Subjective Progress Note for:: 07/24/16 Subjective:: Mental status considerably improved Physical Exam Vital Signs: Temp Pulse Resp BP Pulse Ox 36.9 C 94 20 147/60 H 99 07/24/16 04:29 07/24/16 04:29 07/24/16 04:29 07/24/16 04:29 07/24/16 04:29 Intake & Output 07/22/16 07/23/16 07/24/16 06:59 06:59 06:59 Intake Total 4695 487 4643 Output Total 450 2300 4100 Balance 1130 -1632 -2875 Weight 83.3 kg 83 kg 83 kg General appearance: PRESENT: no acute distress Head exam: PRESENT: normocephalic Eye exam: PRESENT: EOMI Pulses: PRESENT: +1 pedal pulses bilateral Vascular exam: PRESENT: normal capillary refill Extremities exam: PRESENT: other - Left hip dressing clean dry and intact. This a considerable layer of ecchymosis, presumably from the original fall. Leg lengths are equal. Neurovascular examinations intact. Results Laboratory Results: 07/24/16 04:53 07/24/16 04:53 07/24/16 07/24/16 04:53 04:53 WBC 6.6 RBC 2.82 L Hgb 9.1 L Hct 26.9 L MCV 95 MCH 32.1 MCHC 33.8 RDW 13.2 Plt Count 213 Seg Neutrophils % 75.4 Lymphocytes % 12.5 L Monocytes % 9.5 Eosinophils % 2.4 Basophils % 0.2 Absolute Neutrophils 5.0 Absolute Lymphocytes 0.8 Absolute Monocytes 0.6 Absolute Eosinophils 0.2 Absolute Basophils 0.0 Sodium 144.5 Potassium 2.9 L* Chloride 109 H Carbon Dioxide 22 Anion Gap 14 BUN 28 H Creatinine 0.84 Est GFR ( Amer) > 60 Est GFR (Non-Af Amer) > 60 Glucose 96 Calcium 9.1 Magnesium 1.8 07/19/16 07/19/16 07/20/16 14:42 20:40 02:48 Creatine Kinase CK-MB (CK-2) Troponin I < 0.012 0.028 0.082 NT-Pro-B Natriuret Pep 07/22/16 07/22/16 07/22/16 15:28 15:28 21:16 Creatine Kinase 422 H CK-MB (CK-2) 6.83 H Troponin I 2.990 2.660 NT-Pro-B Natriuret Pep 07/23/16 07/24/16 03:45 04:53 Creatine Kinase CK-MB (CK-2) Troponin I 2.280 NT-Pro-B Natriuret Pep 36607 H Impressions: Hip X-Ray 07/19/16 09:59 IMPRESSION: Acute subcapital left femoral neck fracture with varus angulation and mild foreshortening Head CT 07/19/16 10:00 IMPRESSION: Left frontal scalp hematoma without underlying skull fracture or acute intracranial changes Pelvis X-Ray 07/20/16 14:03 IMPRESSION: Portable postoperative film for left hip replacement in good alignment. Chest X-Ray 07/22/16 00:00 IMPRESSION: Interval development of bilateral pleural effusions with bilateral alveolar and interstitial edema worrisome for fluid overload or congestive failure Status: Imported from PACS Assessment & Plan - Diagnosis (1) Subcapital fracture of left femur Is this a current diagnosis for this admission?: YesPlan: Patient making progress with physical therapy. She ambulates 20 feet yesterday. Plan will be to continue ongoing physical therapy and [facility] when medically clear. (2) Mental status alteration Qualifiers: Altered mental status type: disorientation Qualified Code(s): R41.0 - Disorientation, unspecified Is this a current diagnosis for this admission?: Yes - Time Time Spent with patient: 15-24 minutes Anticipated discharge: SNF Within: within 48 hours
[2016-07-24] MEDS: LISINOPRIL 10 MG TABLET PO SCH ×2 (09:59→21:36)
[2016-07-24] MEDS: CHOLECALCIFEROL (D3) 1,000 UNIT TABLET PO SCH (09:59)
[2016-07-24] MEDS: METOPROLOL TARTRATE 50 MG TABLET PO SCH ×2 (10:00→21:36)
[2016-07-24] MEDS: DILTIAZEM HCL 120 MG CAP.SR.24H PO SCH ×2 (10:00→21:37)
[2016-07-24] MEDS: CYANOCOBALAMIN (VITAMIN B-12) 1,000 MCG TABLET PO SCH (10:00)
[2016-07-24] MEDS: PRENATAL VITAMIN W-O CA NO5/FE FUMARATE/FA CAPSULE PO SCH (10:00)
[2016-07-24] MEDS: ASPIRIN 81 MG TABLET, ENT COATED PO SCH (10:00)
[2016-07-24] MEDS: FUROSEMIDE INJ/PF 40 MG/4 ML SDV IV SCH ×2 (10:01→21:37)
[2016-07-24] MEDS: FAMOTIDINE INJ/PF 20 MG/2 ML SDV IV SCH ×2 (10:01→21:37)
[2016-07-24] MEDS: ACYCLOVIR 200 MG CAPSULE PO SCH ×2 (10:02→17:25)
[2016-07-24] MEDS: PREDNISOLONE ACETATE 1% OPH SUSP 5 ML OS SCH (10:06)
[2016-07-24] MEDS: SENNOSIDES/DOCUSATE 8.6-50 MG 1 EACH TABLET PO SCH ×2 (10:06→17:25)
[2016-07-24] MEDS ORDERED: KETOROLAC TROMETHAMINE INJ/PF 30 MG/1 ML SDV IV PRN (11:03)
[2016-07-24] MEDS ORDERED: METOPROLOL TARTRATE 50 MG TABLET PO ONE (12:00)
[2016-07-24] MEDS ORDERED: METOPROLOL TARTRATE 25 MG TABLET PO ONE (13:00)
--- NOTE | 2016-07-24 16:19 | PDOC PROGRESS REPORT ---
Subjective Progress Note for:: 07/24/16 Subjective:: Reason for visit: Follow-up congestive heart failure, and STEMI, paroxysmal A. fib, left femoral neck fracture, hypokalemia Hospital course: Per H&P "TAY POLK is a 86 year old female female presented with complaints of leg pain due to fall. Patient states that she got up this morning to answer the phone since her daughter was calling her. Patient states that she lost her balance and fell. Patient states she hit the front left side of her head and landed on her left hip. Patient states that she is sharp pain with movement and palpation of the left hip. Patient states that feels sore and that she cannot lift her leg. Patient denies any loss of consciousness to her knowledge. Patient is not on any blood thinners. Patient states she is on 3 blood pressure medications. Patient did have surgery on her left eye last week. Patient has no known allergies. Patient's PCP is Dr. Rios; patient had her first appointment with him this morning but missed it due to her fall. Upon evaluation in the ED patient was diagnosed of fracture of the right hip. She also had sustained head injury with ecchymosis of the left temporal area. A CT of the head was negative for bleed. Patient was subsequently admitted under hospitalist service with an orthopedic consult to an IMCU unit." Patient underwent surgical repair of left femoral fracture and has had a complicated post op course with intermittent delirium triggered mostly by narcotics, pulmonary edema 2/2 acute systolic dysfunction with resultant acute hypoxic respiratory failure and PAF, UTI with E Faecalis susc to PCN and multiple electrolyte abnormalities prolonging her hospital course/stay. Patient underwent echocardiogram that shows mildly impaired systolic function with an EF of 55% and grade 1/6 mild diastolic dysfunction, incidentally noted trivial valvular insufficiencies. Subjective: Patient had a much better night but the family continues to report mild confusion with even low-dose Toradol. They report she used to take tramadol for pain and could not take anything stronger due to delirium and confusion, she eventually developed less problems with even low-dose tramadol. They report she is extremely susceptible to analgesics. Otherwise no new events overnight. Patient denies chest pain, palpitations, dyspnea, nausea, vomiting. She does report loss of appetite reported as a disinterest in food. States pain in her hip is reasonably well-controlled. ROS: per HPI plus a total of 10 systems reviewed, pertinent positives and negatives noted above, remaining systems negative. Physical Exam Vital Signs: Temp Pulse Resp BP Pulse Ox 98.0 F 69 22 H 132/66 H 100 07/24/16 12:13 07/24/16 14:00 07/24/16 12:13 07/24/16 12:13 07/24/16 12:13 Intake & Output 07/23/16 07/24/16 07/25/16 06:59 06:59 06:59 Intake Total 668 1225 120 Output Total 2300 4100 900 Balance -9495 -3406 -897 Weight 83 kg 83 kg EXAM GENERAL: NAD; well developed, well nourished; no obese; alert and oriented to person, place, time, situation HEENT: normocephalic, atraumatic; no conjunctival injection, no scleral icterus ; oral mucosa moist; RESPIRATORY: no accessory muscle use, no increased WOB, good air entry bilaterally; no wheezes, rales, rhonchi; no inspiratory crackles CARDIO: no JVD; RRR converted from A. fib over 24 hours ago; soft systolic murmur; no tachycardia, rate controlled on current regimen GI: soft; nondistended; normal bowel sounds; no hepato spleno megaly; no rebound, rigidity, guarding; nontender VASCULAR: no carotid bruit; no abdominal bruit; no pallor; 2+ radial, DP pulse ; normal capillary refill EXTREMITIES: no calf tender; palpable cord in right calf; no clubbing, cyanosis, pedal edema; left leg wound clean dry and intact PSYCH: normal affect, normal mood SKIN: warm; moist; no petechiae; no telengectasias; no jaundice; no rash Results Laboratory Results: 07/24/16 04:53 07/24/16 04:53 07/24/16 07/24/16 04:53 04:53 WBC 6.6 RBC 2.82 L Hgb 9.1 L Hct 26.9 L MCV 95 MCH 32.1 MCHC 33.8 RDW 13.2 Plt Count 213 Seg Neutrophils % 75.4 Lymphocytes % 12.5 L Monocytes % 9.5 Eosinophils % 2.4 Basophils % 0.2 Absolute Neutrophils 5.0 Absolute Lymphocytes 0.8 Absolute Monocytes 0.6 Absolute Eosinophils 0.2 Absolute Basophils 0.0 Sodium 144.5 Potassium 2.9 L* Chloride 109 H Carbon Dioxide 22 Anion Gap 14 BUN 28 H Creatinine 0.84 Est GFR ( Amer) > 60 Est GFR (Non-Af Amer) > 60 Glucose 96 Calcium 9.1 Magnesium 1.8 07/19/16 07/19/16 07/20/16 14:42 20:40 02:48 Creatine Kinase CK-MB (CK-2) Troponin I < 0.012 0.028 0.082 NT-Pro-B Natriuret Pep 07/22/16 07/22/16 07/22/16 15:28 15:28 21:16 Creatine Kinase 422 H CK-MB (CK-2) 6.83 H Troponin I 2.990 2.660 NT-Pro-B Natriuret Pep 07/23/16 07/24/16 03:45 04:53 Creatine Kinase CK-MB (CK-2) Troponin I 2.280 NT-Pro-B Natriuret Pep 05448 H Labs are reviewed, potassium is still low in spite of replacement with good renal function, H&H improved this morning, proBNP markedly elevated, troponins elevated but trending down slightly at 2.28 reaching a peak of 2.99 EKG Comments: Last EKG shows atrial fibrillation and rapid ventricular rate with reciprocal changes in T waves but no obvious ischemic changes Impressions: Hip X-Ray 07/19/16 09:59 IMPRESSION: Acute subcapital left femoral neck fracture with varus angulation and mild foreshortening Head CT 07/19/16 10:00 IMPRESSION: Left frontal scalp hematoma without underlying skull fracture or acute intracranial changes Pelvis X-Ray 07/20/16 14:03 IMPRESSION: Portable postoperative film for left hip replacement in good alignment. Chest X-Ray 07/22/16 00:00 IMPRESSION: Interval development of bilateral pleural effusions with bilateral alveolar and interstitial edema worrisome for fluid overload or congestive failure Status: Imported from PACS - Reports were reviewed Assessment & Plan - Diagnosis (1) Acute respiratory failure with hypoxia Is this a current diagnosis for this admission?: YesPlan: Likely secondary to the acute pulmonary edema from the paroxysmal atrial fibrillation and acute diastolic heart failure, however given the sudden change and the palpable cord in the right calf consideration for thromboembolic disease must be considered. There is little utility to checking a d-dimer given her recent surgery as it will likely be elevated, however given her advanced age and multiple comorbidities will choose a more conservative approach but checking one now and venous Dopplers of the lower extremities. Consider CT angiogram of the chest. (2) Hypokalemia Is this a current diagnosis for this admission?: YesPlan: Likely secondary to diuretic therapy, continue to replace and monitor. (3) Non-STEMI (non-ST elevated myocardial infarction) Is this a current diagnosis for this admission?: YesPlan: Medical management only at present given the acute infection. Patient is chest pain-free and has been throughout her hospitalization. Continue beta sydnie, JONNATHAN inhibitor and aspirin and add statin therapy empirically. LFTs on admission were normal. (4) Acute on chronic diastolic (congestive) heart failure Is this a current diagnosis for this admission?: YesPlan: Continue attempts diuresis. Likely change to oral diuretics in the morning. (5) Anemia Qualifiers: Other causes of anemia: acute posthemorrhagic Is this a current diagnosis for this admission?: YesPlan: No evidence for acute blood loss, we'll check Hemoccult stool and she will need to be on antiplatelet therapy and DVT prophylaxis therapy going forward. Continue to monitor H&H. (6) Encephalopathy acute Is this a current diagnosis for this admission?: YesPlan: Seems driven largely by narcotic use, will change the Toradol to as needed and treat with acetaminophen. Patient reports pain is well controlled at present and is not using or requesting additional treatment. (7) Hypertension Qualifiers: Hypertension type: essential hypertension Qualified Code(s): I10 - Essential (primary) hypertension Is this a current diagnosis for this admission?: YesPlan: Increase her beta sydnie to 75 mg twice a day and monitor for results (8) Paroxysmal atrial fibrillation Is this a current diagnosis for this admission?: YesPlan: Likely related to the acute ischemia and electrolyte abnormalities and hypoxia, nevertheless has converted with calcium channel and beta-blockade. Continue rate control and Xarelto. Screen for thromboembolic disease as noted above. (9) Subcapital fracture of left femur Is this a current diagnosis for this admission?: YesPlan: Status post surgical repair. Weightbearing status and rehabilitation status per orthopedic surgery. Wound care per orthopedic surgery. (10) UTI (urinary tract infection) Qualifiers: Encounter type: initial encounter Is this a current diagnosis for this admission?: YesPlan: Secondary to a penicillin susceptible Enterococcus faecalis, changed to oral Amoxil. - Time Time Spent with patient: 35 or more minutes Medications reviewed and adjusted accordingly: Yes Anticipated discharge: Acute Rehab Within: within 72 hours
[2016-07-24] MEDS: AMOXICILLIN TRIHYDRATE 500 MG CAPSULE PO SCH (21:36)
[2016-07-24] MEDS: ATORVASTATIN CALCIUM 20 MG TABLET PO SCH (21:36)
[2016-07-24] MEDS: POTASSIUM CHLORIDE 10 MEQ TABLET.SA PO SCH (21:36)
[2016-07-24] MEDS: RIVAROXABAN 10 MG TABLET PO SCH (21:37)
[2016-07-24] MEDS: ACETAMINOPHEN 325 MG TABLET PO PRN (21:48)
[2016-07-25] MEDS: HYDRALAZINE HCL INJ/PF 20 MG/1 ML SDV IV PRN ×2 (04:28→11:31)
[2016-07-25] MEDS: LANSOPRAZOLE 30 MG TAB.RAP.DR PO SCH (05:27)
[2016-07-25] MEDS: AMOXICILLIN TRIHYDRATE 500 MG CAPSULE PO SCH ×3 (05:27→22:36)
[2016-07-25 07:33] LABS: HEMATOCRIT 29.5 % (36.0-47.0); HGB HCT DIFFERENCE 0.5; MEAN CORPUSCULAR HEMOGLOBIN 31.8 pg (27.0-33.4); MEAN CORPUSCULAR HGB CONC 34.1 g/dL (32.0-36.0); MEAN CORPUSCULAR VOLUME 93 fl (80-97); RED BLOOD COUNT 3.16 10^6/uL (3.72-5.28); RED CELL DISTRIBUTION WIDTH 12.9 % (11.5-14.0); WHITE BLOOD COUNT 6.6 10^3/uL (4.0-10.5)
[2016-07-25 07:52] LABS: ANION GAP 11 (5-19); BLOOD UREA NITROGEN 21 mg/dL (7-20); CALCIUM 9.2 mg/dL (8.4-10.2); CARBON DIOXIDE 25 mmol/L (22-30); CHLORIDE 105 mmol/L (98-107); CREATININE RESULT 0.74 mg/dL (0.52-1.25); GLUCOSE 98 mg/dL (75-110); MAGNESIUM 1.9 mg/dL (1.6-2.3); SODIUM 140.9 mmol/L (137-145)
[2016-07-25 08:03] LABS: TROPONIN I 1.02 ng/mL
[2016-07-25] MEDS: PREDNISOLONE ACETATE 1% OPH SUSP 5 ML OS SCH (08:21)
[2016-07-25] MEDS: ACYCLOVIR 200 MG CAPSULE PO SCH ×2 (09:14→17:34)
[2016-07-25] MEDS: CHOLECALCIFEROL (D3) 1,000 UNIT TABLET PO SCH (09:14)
[2016-07-25] MEDS: METOPROLOL TARTRATE 50 MG TABLET PO SCH ×2 (09:14→22:36)
[2016-07-25] MEDS: ASPIRIN 81 MG TABLET, ENT COATED PO SCH (09:16)
[2016-07-25] MEDS: POTASSIUM CHLORIDE 10 MEQ TABLET.SA PO SCH ×4 (09:17→22:36)
[2016-07-25] MEDS: FUROSEMIDE INJ/PF 40 MG/4 ML SDV IV SCH ×2 (09:17→22:36)
[2016-07-25] MEDS: DILTIAZEM HCL 120 MG CAP.SR.24H PO SCH (09:17)
[2016-07-25] MEDS: LISINOPRIL 10 MG TABLET PO SCH ×2 (09:17→22:36)
[2016-07-25] MEDS: PRENATAL VITAMIN W-O CA NO5/FE FUMARATE/FA CAPSULE PO SCH (09:17)
[2016-07-25] MEDS: CYANOCOBALAMIN (VITAMIN B-12) 1,000 MCG TABLET PO SCH (09:17)
[2016-07-25] MEDS: SENNOSIDES/DOCUSATE 8.6-50 MG 1 EACH TABLET PO SCH ×2 (09:18→17:35)
[2016-07-25] MEDS: FAMOTIDINE INJ/PF 20 MG/2 ML SDV IV SCH ×2 (09:18→22:36)
[2016-07-25] MEDS: ACETAMINOPHEN 325 MG TABLET PO PRN (12:52)
[2016-07-25] MEDS ORDERED: DILTIAZEM HCL 120 MG CAP.SR.24H PO SCH (13:00)
--- NOTE | 2016-07-25 13:00 | PDOC PROGRESS REPORT ---
Subjective Progress Note for:: 07/25/16 Subjective:: Reason for visit: Follow-up congestive heart failure, and STEMI, paroxysmal A. fib, left femoral neck fracture, hypokalemia Hospital course: Per H&P "TAY POLK is a 86 year old female female presented with complaints of leg pain due to fall. Patient states that she got up this morning to answer the phone since her daughter was calling her. Patient states that she lost her balance and fell. Patient states she hit the front left side of her head and landed on her left hip. Patient states that she is sharp pain with movement and palpation of the left hip. Patient states that feels sore and that she cannot lift her leg. Patient denies any loss of consciousness to her knowledge. Patient is not on any blood thinners. Patient states she is on 3 blood pressure medications. Patient did have surgery on her left eye last week. Patient has no known allergies. Patient's PCP is Dr. Rios; patient had her first appointment with him this morning but missed it due to her fall. Upon evaluation in the ED patient was diagnosed of fracture of the right hip. She also had sustained head injury with ecchymosis of the left temporal area. A CT of the head was negative for bleed. Patient was subsequently admitted under hospitalist service with an orthopedic consult to an IMCU unit." Patient underwent surgical repair of left femoral fracture and has had a complicated post op course with intermittent delirium triggered mostly by narcotics, pulmonary edema 2/2 acute systolic dysfunction with resultant acute hypoxic respiratory failure and PAF, UTI with E Faecalis susc to PCN and multiple electrolyte abnormalities prolonging her hospital course/stay. Patient underwent echocardiogram that shows mildly impaired systolic function with an EF of 55% and grade 1/6 mild diastolic dysfunction, incidentally noted trivial valvular insufficiencies. Subjective: Patient continues to have waxing and waning mental state, usually worse at night. This morning she is alert and oriented and remembers meeting me from yesterday. She has no complaints to me today of chest pain, palpitations, nausea, vomiting, diarrhea, is tolerating her diet without difficulty, states pain in her left hip is well controlled and not requiring pain medicines. ROS: per HPI plus a total of 10 systems reviewed, pertinent positives and negatives noted above, remaining systems negative. Physical Exam Vital Signs: Temp Pulse Resp BP Pulse Ox 98.4 F 67 22 H 198/70 H 99 02/22/17 08:00 07/25/16 08:00 07/25/16 08:00 07/25/16 08:00 07/25/16 08:00 Intake & Output 07/24/16 07/25/16 07/26/16 06:59 06:59 06:59 Intake Total 1225 960 Output Total 4100 3600 Balance -2875 -2640 Weight 83 kg 77.7 kg EXAM GENERAL: NAD; well developed, well nourished; no obese; alert and oriented to person, place, situation HEENT: normocephalic, atraumatic; no conjunctival injection, no scleral icterus ; oral mucosa moist; RESPIRATORY: no accessory muscle use, no increased WOB, good air entry bilaterally; no wheezes, rales, rhonchi; no inspiratory crackles CARDIO: no JVD; RRR converted from A. fib and remains in sinus rhythm at present ; soft systolic murmur; no tachycardia, rate controlled on current regimen GI: soft; nondistended; normal bowel sounds; no hepato spleno megaly; no rebound, rigidity, guarding; nontender VASCULAR: no carotid bruit; no abdominal bruit; no pallor; 2+ radial, DP pulse ; normal capillary refill EXTREMITIES: no calf tender; palpable cord in right calf; no clubbing, cyanosis, pedal edema; left leg wound clean dry and intact, good range of motion and good strength, participate with physical therapy PSYCH: normal affect, normal mood SKIN: warm; moist; no petechiae; no telengectasias; no jaundice; no rash Results Laboratory Results: 07/25/16 07:11 07/25/16 07:11 07/25/16 07/25/16 07:11 07:11 WBC 6.6 RBC 3.16 L Hgb 10.0 L Hct 29.5 L MCV 93 MCH 31.8 MCHC 34.1 RDW 12.9 Plt Count 348 Sodium 140.9 Potassium 3.0 L* Chloride 105 Carbon Dioxide 25 Anion Gap 11 BUN 21 H Creatinine 0.74 Est GFR ( Amer) > 60 Est GFR (Non-Af Amer) > 60 Glucose 98 Calcium 9.2 Magnesium 1.9 07/19/16 07/19/16 07/20/16 14:42 20:40 02:48 Creatine Kinase CK-MB (CK-2) Troponin I < 0.012 0.028 0.082 NT-Pro-B Natriuret Pep 07/22/16 07/22/16 07/22/16 15:28 15:28 21:16 Creatine Kinase 422 H CK-MB (CK-2) 6.83 H Troponin I 2.990 2.660 NT-Pro-B Natriuret Pep 07/23/16 07/24/16 07/25/16 03:45 04:53 07:11 Creatine Kinase CK-MB (CK-2) Troponin I 2.280 1.020 NT-Pro-B Natriuret Pep 74169 H 29657 H Labs reviewed, potassium remains low, H&H trending up. Impressions: Chest/Abdomen CTA 07/24/16 00:00 IMPRESSION: Moderate bilateral pleural effusions and basilar subsegmental atelectasis. . No emboli visualized in the main pulmonary arteries. . Status: Image reviewed by me - Agree with radiology Assessment & Plan - Diagnosis (1) Acute respiratory failure with hypoxia Is this a current diagnosis for this admission?: YesPlan: Likely secondary to the acute pulmonary edema from the paroxysmal atrial fibrillation and acute diastolic heart failure, however given the sudden change and the palpable cord in the right calf consideration for thromboembolic disease must be considered so CT angiogram of the chest performed and showed no evidence of embolic disease, did show bilateral pleural effusions with mild compressive atelectasis and no evidence for airspace disease suggestive of pneumonia, infiltrate. (2) Hypokalemia Is this a current diagnosis for this admission?: YesPlan: Likely secondary to diuretic therapy, increase replacement and monitor. (3) Non-STEMI (non-ST elevated myocardial infarction) Is this a current diagnosis for this admission?: YesPlan: Medical management only at present given the acute infection. Patient is chest pain-free and has been throughout her hospitalization. Continue beta sydnie, JONNATHAN inhibitor and aspirin and statin therapy empirically. LFTs on admission were normal. (4) Acute on chronic diastolic (congestive) heart failure Is this a current diagnosis for this admission?: YesPlan: Continue diuresis. Likely change to oral diuretics in the morning. (5) Anemia Qualifiers: Other causes of anemia: acute posthemorrhagic Is this a current diagnosis for this admission?: YesPlan: No evidence for acute blood loss, we'll check Hemoccult stool and she will need to be on antiplatelet therapy and DVT prophylaxis therapy going forward. Continue to monitor H&H. (6) Encephalopathy acute Is this a current diagnosis for this admission?: YesPlan: Improving daily, worse at night and Seems driven largely by narcotic use, will change the Toradol to as needed and treat with acetaminophen and instructed staff to minimize use of centrally acting agents. Patient reports pain is well controlled at present and is not using or requesting additional treatment. (7) Hypertension Qualifiers: Hypertension type: essential hypertension Qualified Code(s): I10 - Essential (primary) hypertension Is this a current diagnosis for this admission?: YesPlan: Continue to titrate her regimen. Beta sydnie was increased yesterday, will increase her calcium channel sydnie today and monitor for effect. (8) Paroxysmal atrial fibrillation Is this a current diagnosis for this admission?: YesPlan: Likely related to the acute ischemia and electrolyte abnormalities and hypoxia, nevertheless has converted with calcium channel and beta-blockade. Continue rate control and Xarelto. Screen for thromboembolic disease was negative as noted above. (9) Subcapital fracture of left femur Is this a current diagnosis for this admission?: YesPlan: Status post surgical repair. Weightbearing status and rehabilitation status per orthopedic surgery. Wound care per orthopedic surgery. (10) UTI (urinary tract infection) Qualifiers: Encounter type: initial encounter Is this a current diagnosis for this admission?: YesPlan: Secondary to a penicillin susceptible Enterococcus faecalis, changed to oral Amoxil and will need to complete a 10 day course. Hesitant to DC Thomas catheter even though she is more ambulatory due to continued diuresis. - Time Time Spent with patient: 25-34 minutes Medications reviewed and adjusted accordingly: Yes Anticipated discharge: Acute Rehab Within: within 24 hours - Plan Summary Plan Summary: Case and plan were discussed with patient's daughter at bedside, all questions asked and answered to the best of my ability. If she continues to improve I suspect she can be transferred to [facility] as early as tomorrow now that they have made about offer.
[2016-07-25] MEDS ORDERED: DILTIAZEM HCL 180 MG CAPSULE.CR PO ONE (14:00)
--- NOTE | 2016-07-25 18:59 | XCELERA REPORT ---
[address] [address] Lower Extremity Venous Evaluation Name: TAY POLK Age: 86 yrs Gender: Female : 1930 Patient Status: Inpatient Patient Location: [id number] Study Date: 07/25/2016 11:10 AM Procedure: Color flow and duplex imaging bilaterally of the veins of the lower extremities as well as the Common Femoral veins. Reason For Study: TISH MONROE Ordering Physician: TERA SANDERS Performed By: Sagrario Manning Right Sided Venous Evaluation Normal vessel filling wall to wall, compression and augmentation as well as Colour flow down to the infrageniculate veins. Left Sided Venous Evaluation Normal vessel filling wall to wall, compression and augmentation as well as Colour flow down to the infrageniculate veins. Interpretation Summary No duplex evidence of DVT or obstruction in the bilateral lower extremities. : TERA SANDERS > Jim Moreno
[2016-07-25] MEDS: BRINZOLAMIDE OU SCH (22:00)
[2016-07-25] MEDS ORDERED: TRAVOPROST OU SCH (22:00)
[2016-07-25] MEDS: RIVAROXABAN 10 MG TABLET PO SCH (22:36)
[2016-07-25] MEDS: ATORVASTATIN CALCIUM 20 MG TABLET PO SCH (22:36)
[2016-07-25] MEDS: DILTIAZEM HCL 180 MG CAPSULE.CR PO SCH (22:36)
[2016-07-26] MEDS: LANSOPRAZOLE 30 MG TAB.RAP.DR PO SCH (05:51)
[2016-07-26] MEDS: AMOXICILLIN TRIHYDRATE 500 MG CAPSULE PO SCH ×2 (05:51→13:34)
[2016-07-26 07:38] LABS: ANION GAP 10 (5-19); BLOOD UREA NITROGEN 22 mg/dL (7-20); CALCIUM 9.3 mg/dL (8.4-10.2); CARBON DIOXIDE 26 mmol/L (22-30); CHLORIDE 104 mmol/L (98-107); CREATININE RESULT 0.83 mg/dL (0.52-1.25); GLUCOSE 102 mg/dL (75-110); MAGNESIUM 1.9 mg/dL (1.6-2.3); POTASSIUM 3.6 mmol/L (3.6-5.0)
--- NOTE | 2016-07-26 11:14 | PDOC TRANSFER SUMMARY ---
General - Admit/Disc Date/PCP Admission Date/Primary Care Provider: 07/19/16 12:38 KYLAH GEE MD Discharge Date: 07/26/16 - Discharge Diagnosis (1) Acute respiratory failure with hypoxia Is this a current diagnosis for this admission?: YesSummary: Likely secondary to the acute pulmonary edema from the paroxysmal atrial fibrillation and acute diastolic heart failure, however given the sudden change and the palpable cord in the right calf consideration for thromboembolic disease must be considered so CT angiogram of the chest performed and showed no evidence of embolic disease, did show bilateral pleural effusions with mild compressive atelectasis and no evidence for airspace disease suggestive of pneumonia, infiltrate. Patient is now maintaining room air sats greater than 95 % and is stable for discharge. (2) Hypokalemia Is this a current diagnosis for this admission?: YesSummary: Likely secondary to diuretic therapy, should be easier to manage with decrease in her diuretic therapy. Discharge on continued oral potassium and defer to PCP regarding follow-up labs. (3) Non-STEMI (non-ST elevated myocardial infarction) Is this a current diagnosis for this admission?: YesSummary: Medical management only at present given the acute infection. Patient is chest pain-free and has been throughout her hospitalization. Continue beta nancy, JONNATHAN inhibitor and aspirin and statin therapy empirically, LFTs on admission were normal. Outpatient referral to cardiology for follow-up and further investigation. (4) Acute on chronic diastolic (congestive) heart failure Is this a current diagnosis for this admission?: YesSummary: Improved enough to decrease Lasix to once daily oral and deferred to PCP for follow-up. Continue JONNATHAN inhibitor. Consider addition of Aldactone in follow- up with cardiology. (5) Anemia Is this a current diagnosis for this admission?: YesSummary: No evidence for acute blood loss, H&H trending up. Defer to PCP for follow-up. (6) Encephalopathy acute Is this a current diagnosis for this admission?: YesSummary: Resolved. Multifactorial. Worsened with narcotics. Recommend judicious use of narcotics, tolerates acetaminophen with good pain control. (7) Hypertension Is this a current diagnosis for this admission?: YesSummary: Better controlled but labile, defer to PCP and cardiology regarding further titration. (8) Paroxysmal atrial fibrillation Is this a current diagnosis for this admission?: YesSummary: Continue beta nancy and calcium channel nancy for rate control. Continue Xarelto. Follow-up with cardiology. (9) Subcapital fracture of left femur Is this a current diagnosis for this admission?: YesSummary: Weightbearing status, rehabilitation status, wound care per orthopedic surgery. (10) UTI (urinary tract infection) Is this a current diagnosis for this admission?: YesSummary: Complete another 7 days for Enterococcus faecalis susceptible to penicillin. Thomas catheter removed prior to discharge. - Additional Information Resuscitation Status: Full Code Discharge Diet: Cardiac Discharge Activity: Slowly Increase Activity, Supervised Activity Home Medications: Acyclovir [Acyclovir 400 mg Tablet] 400 mg PO BID 07/19/16 Aspirin [Aspirin EC] 81 mg PO DAILY 07/19/16 Brinzolamide [Azopt] 1 drop OU BID 07/19/16 Cholecalciferol (Vitamin D3) [Vitamin D3 2000 unit Tablet] 2,000 units PO DAILY 07/19/16 Cyanocobalamin (Vitamin B-12) [Vitamin B-12 1000 mcg Tablet] 1,000 mcg PO DAILY 07/19/16 Polyvinyl Alcohol/Povidone/Pf [Refresh Classic Eye Drops] 1 drop OU PRN PRN Prednisolone Acetate 1 drop OS QAM 07/19/16 Travoprost [Travatan Z] 1 drop OU QHS 07/19/16 Ubidecarenone [Co Q-10] 100 mg PO DAILY 07/19/16 Acetaminophen [Tylenol 325 mg Tablet] 650 mg PO Q4HP PRN tablet 07/26/16 Amoxicillin Trihydrate [Amoxil 500 mg Capsule] 500 mg PO Q8 #21 capsule Aspirin [Ecotrin 81 mg EC Tablet] 81 mg PO DAILY tabec 07/26/16 Atorvastatin Calcium [Lipitor 20 mg Tablet] 20 mg PO QHS tablet 07/26/16 Diltiazem HCl [Cardizem Cd 180 mg Capsule] 180 mg PO Q12 #60 capsule.cr Furosemide [Lasix] 40 mg PO DAILY #30 tablet 07/26/16 Lansoprazole [Prevacid 30 mg Odt Tablet] 30 mg PO Q6AM #30 tab.raymond. 07/26/16 Lisinopril [Prinivil 10 mg Tablet] 10 mg PO Q12 #60 tablet 07/26/16 Mag Hydrox/Al Hydrox/Simeth [Maalox Plus Susp 30 Udcup] 30 ml PO Q6HP PRN #0 udc 07/26/16 Metoprolol Tartrate [Lopressor 50 mg Tablet] 75 mg PO Q12 #60 tablet 07/26/16 Ondansetron [Zofran Odt 4 mg Tablet] 4 mg PO Q6HP PRN tab.rapdis 07/26/16 Pnv W-O Ca No5/Fe Fumarate/FA [-U Multiple Vitamin Capsule] 1 cap PO DAILY capsule 07/26/16 Potassium Chloride [Klor-Con 10 Meq Tablet.sa] 20 meq PO TID #90 tablet.sa 07/26 Rivaroxaban [Xarelto 10 mg Tablet] 10 mg PO QHS tablet 07/26/16 Sennosides/Docusate 8.6-50 mg [Senna Plus Tablet] 1 each PO BID tablet History of Present Illness Admission Date/PCP: 07/19/16 12:38 KYLAH GEE MD Patient complains of: complaints of leg pain due to fall. History of Present Illness: Hospital course: Per H&P "TAY POLK is a 86 year old female female presented with complaints of leg pain due to fall. Patient states that she got up this morning to answer the phone since her daughter was calling her. Patient states that she lost her balance and fell. Patient states she hit the front left side of her head and landed on her left hip. Patient states that she is sharp pain with movement and palpation of the left hip. Patient states that feels sore and that she cannot lift her leg. Patient denies any loss of consciousness to her knowledge. Patient is not on any blood thinners. Patient states she is on 3 blood pressure medications. Patient did have surgery on her left eye last week. Patient has no known allergies. Patient's PCP is Dr. Gee; patient had her first appointment with him this morning but missed it due to her fall. Upon evaluation in the ED patient was diagnosed of fracture of the right hip. She also had sustained head injury with ecchymosis of the left temporal area. A CT of the head was negative for bleed. Patient was subsequently admitted under hospitalist service with an orthopedic consult to an [facility] unit." Patient underwent surgical repair of left femoral fracture and has had a complicated post op course with intermittent delirium triggered mostly by narcotics, pulmonary edema 2/2 acute systolic dysfunction with resultant acute hypoxic respiratory failure and PAF, UTI with E Faecalis susc to PCN and multiple electrolyte abnormalities prolonging her hospital course/stay. Patient underwent echocardiogram that shows mildly impaired systolic function with an EF of 55% and grade 1/6 mild diastolic dysfunction, incidentally noted trivial valvular insufficiencies. Subjective: Patient continues to have waxing and waning mental state, usually worse at night. This morning she is alert and oriented and remembers meeting me from yesterday. She has no complaints to me today of chest pain, palpitations, nausea, vomiting, diarrhea, is tolerating her diet without difficulty, states pain in her left hip is well controlled and not requiring pain medicines. Hospital Course Hospital Course: As above. Patient is improved with medical management and is stable for discharge to [facility] for ongoing rehabilitation. Physical Exam Vital Signs: Temp Pulse Resp BP Pulse Ox 98.1 F 67 24 H 156/62 H 98 07/26/16 03:54 07/26/16 03:54 07/26/16 03:54 07/26/16 03:54 07/26/16 06:33 Intake & Output 07/25/16 07/26/16 07/27/16 06:59 06:59 06:59 Intake Total 960 1020 Output Total 3600 2900 Balance -2640 -1880 Weight 77.7 kg 77.5 kg eXAM GENERAL: NAD; well developed, well nourished; no obese; alert and oriented to person, place, situation HEENT: normocephalic, atraumatic; no conjunctival injection, no scleral icterus ; oral mucosa moist; RESPIRATORY: no accessory muscle use, no increased WOB, good air entry bilaterally; no wheezes, rales, rhonchi; no inspiratory crackles CARDIO: no JVD; RRR converted from A. fib and remains in sinus rhythm at present ; soft systolic murmur; no tachycardia, rate controlled on current regimen GI: soft; nondistended; normal bowel sounds; no hepato spleno megaly; no rebound, rigidity, guarding; nontender VASCULAR: no carotid bruit; no abdominal bruit; no pallor; 2+ radial, DP pulse ; normal capillary refill EXTREMITIES: no calf tender; palpable cord in right calf; no clubbing, cyanosis, pedal edema; left leg wound clean dry and intact, good range of motion and good strength, participate with physical therapy PSYCH: normal affect, normal mood SKIN: warm; moist; no petechiae; no telengectasias; no jaundice; no rash Results Laboratory Results: 07/25/16 07:11 07/26/16 06:53 07/26/16 06:53 Sodium 140.0 Potassium 3.6 Chloride 104 Carbon Dioxide 26 Anion Gap 10 BUN 22 H Creatinine 0.83 Est GFR ( Amer) > 60 Est GFR (Non-Af Amer) > 60 Glucose 102 Calcium 9.3 Magnesium 1.9 07/19/16 07/19/16 07/20/16 14:42 20:40 02:48 Creatine Kinase CK-MB (CK-2) Troponin I < 0.012 0.028 0.082 NT-Pro-B Natriuret Pep 07/22/16 07/22/16 07/22/16 15:28 15:28 21:16 Creatine Kinase 422 H CK-MB (CK-2) 6.83 H Troponin I 2.990 2.660 NT-Pro-B Natriuret Pep 07/23/16 07/24/16 07/25/16 03:45 04:53 07:11 Creatine Kinase CK-MB (CK-2) Troponin I 2.280 1.020 NT-Pro-B Natriuret Pep 37327 H 77983 H Impressions: Hip X-Ray 07/19/16 09:59 IMPRESSION: Acute subcapital left femoral neck fracture with varus angulation and mild foreshortening Head CT 07/19/16 10:00 IMPRESSION: Left frontal scalp hematoma without underlying skull fracture or acute intracranial changes Pelvis X-Ray 07/20/16 14:03 IMPRESSION: Portable postoperative film for left hip replacement in good alignment. Chest X-Ray 07/22/16 00:00 IMPRESSION: Interval development of bilateral pleural effusions with bilateral alveolar and interstitial edema worrisome for fluid overload or congestive failure Chest/Abdomen CTA 07/24/16 00:00 IMPRESSION: Moderate bilateral pleural effusions and basilar subsegmental atelectasis. . No emboli visualized in the main pulmonary arteries. . Transfer Plan - Disposition Transfer Plan: Transferred to [facility] for ongoing rehabilitation. - Time Spent with Patient Time spent with patient: Greater than 30 Minutes Qualifiers PATEINT BEING DISCHARGED WITH ANY OF THE FOLLOWING DIAGNOSIS?: SC VTE patient discharged on overlapping Therapy?: Yes SC Pt being discharged on Aspirin therapy?: Yes SC Pt being discharged on Statins?: Yes SC Pt discharged ACEI/ARBS?: Yes HF Pt being discharged on ACEI for LVEF less than 40%?: No HF Pt with Afib discharged with Warfarin?: No Reason(s) for not prescribing Warfarin:: Tx not tolerated - Since on Xarelto HF Pt discharged on evidence-based Beta Nancy?: Yes Plan Discharge Plan: Transferred to [facility] for rehabilitation, follow-up with cardiology as outpatient, follow-up with her PCP in 1-2 weeks, return to the emergency department for worsening condition.
[2016-07-26] MEDS: ACYCLOVIR 200 MG CAPSULE PO SCH (11:34)
[2016-07-26] MEDS: BRINZOLAMIDE OU SCH (11:36)
[2016-07-26] MEDS: LISINOPRIL 10 MG TABLET PO SCH (11:37)
[2016-07-26] MEDS: PREDNISOLONE ACETATE 1% OPH SUSP 5 ML OS SCH (11:37)
[2016-07-26] MEDS: METOPROLOL TARTRATE 50 MG TABLET PO SCH (11:38)
[2016-07-26] MEDS: PRENATAL VITAMIN W-O CA NO5/FE FUMARATE/FA CAPSULE PO SCH (11:38)
[2016-07-26] MEDS: ASPIRIN 81 MG TABLET, ENT COATED PO SCH (11:39)
[2016-07-26] MEDS: DILTIAZEM HCL 180 MG CAPSULE.CR PO SCH (11:39)
[2016-07-26] MEDS: POTASSIUM CHLORIDE 10 MEQ TABLET.SA PO SCH ×2 (11:39→13:34)
[2016-07-26] MEDS: CYANOCOBALAMIN (VITAMIN B-12) 1,000 MCG TABLET PO SCH (11:40)
[2016-07-26] MEDS: CHOLECALCIFEROL (D3) 1,000 UNIT TABLET PO SCH (11:40)
[2016-07-26] MEDS: SENNOSIDES/DOCUSATE 8.6-50 MG 1 EACH TABLET PO SCH (11:40)
[2016-07-26] MEDS: FAMOTIDINE INJ/PF 20 MG/2 ML SDV IV SCH (11:41)
[2016-07-26] MEDS: FUROSEMIDE INJ/PF 40 MG/4 ML SDV IV SCH (11:41)
[2016-07-26 13:49] VITALS: BP 156/76
[2016-07-26] MEDS: ACETAMINOPHEN 325 MG TABLET PO PRN (15:03)
== END 2016-07-26 19:47 | DRG 469 ==
LOC: ER 08:09 → EH 11:42 → UNDOADMIN 11:42 → EH 12:38 → 3S 15:45
PROVIDERS: ADMIT Emergency Medicine; ATTEND Emergency Medicine
PROC: 0SRS01Z Replacement of Left Hip Joint, Femoral Surface with Metal Synthetic Substitute, Open Approach (ICD-10-PCS; principal; 2016-07-20 13:00)
DX: S72.012A Unspecified intracapsular fracture of left femur, initial encounter for closed fracture (principal); J96.01 Acute respiratory failure with hypoxia; I21.4 Non-ST elevation (NSTEMI) myocardial infarction; I50.33 Acute on chronic diastolic (congestive) heart failure; G93.41 Metabolic encephalopathy; N39.0 Urinary tract infection, site not specified; I48.0 Paroxysmal atrial fibrillation; D64.9 Anemia, unspecified; E87.6 Hypokalemia; S00.83XA Contusion of other part of head, initial encounter; T50.1X5A Adverse effect of loop [high-ceiling] diuretics, initial encounter; T40.2X5A Adverse effect of other opioids, initial encounter; T42.4X5A Adverse effect of benzodiazepines, initial encounter; W18.30XA Fall on same level, unspecified, initial encounter; Y92.009 Unspecified place in unspecified non-institutional (private) residence as the place of occurrence of the external cause; M19.90 Unspecified osteoarthritis, unspecified site; H40.9 Unspecified glaucoma; H54.8 Legal blindness, as defined in USA; I11.0 Hypertensive heart disease with heart failure; Z66 Do not resuscitate; R00.1 Bradycardia, unspecified; B95.2 Enterococcus as the cause of diseases classified elsewhere; Z90.49 Acquired absence of other specified parts of digestive tract; Z90.12 Acquired absence of left breast and nipple
CPT/HCPCS: 01210; 36415; 36600; 70450; 71010; 71275; 72170; 80048; 80053; 81001; 82550; 82553; 82803; 83036; 83735; 83880; 84100; 84439; 84443; 84484; 85025; 85027; 85379; 85610; 86850; 86900; 86901; 87086; 87088; 87186; 88304; 88311; 93005; 93010; 93306; 93970; 96365; 96366; 96375; 99285; C9290; G8978-GP; G8979-GP; G8987-GO; G8988-GO; J0131; J0295; J0360; J1160; J1741; J1885; J1940; J1956; J2060; J2250; J2270; J2405; J2704; J2765; J3010; J3360; J3370; J3480; J3490; J7040; J7050; J7060; J7120; S0028